=== PATIENT | male | born 1965 | race Caucasian/White ===

== ENCOUNTER → 2016-07-30 | Outpatient (CLI) | payer OTHER ==
[2016-07-30 09:01] LABS: Hemoglobin A1C 6.2 % (4.2-6.1)
== END | disposition home or self-care (01) ==
LOC: LABWHC1 08:04
PROVIDERS: ATTEND Internal Medicine Endocrinology, Diabetes & Metabolism
DX: E11.65 Type 2 diabetes mellitus with hyperglycemia (principal)
CPT/HCPCS: 36415; 82043; 82947; 83036; 84681

== ENCOUNTER → 2016-08-10 | Outpatient (CLI) | payer OTHER ==
--- NOTE | 2016-08-10 09:55 | MR ---
EXAMINATION TYPE: MR lumbar spine wo con DATE OF EXAM: 08/10/2016 9:47 AM COMPARISON: NONE HISTORY: Back pain TECHNIQUE: T1 and T2 axial and sagittal images of the lumbar spine are submitted. FINDINGS: There is no abnormal signal seen within the visualized spinal cord or paraspinal soft tissu es. At L1-2 there is mild disc desiccation and degenerative disc disease. No canal stenosis or foraminal encroachment. At L2-3 there is mild discogenic marrow changes and degenerative disc disease. No disc herniation or canal stenosis. Very mild right lateral disc bulging with no significant foraminal encroachment or ne rve root impingement. At L3-4 there is mild degenerative disc disease with circumferential disc bulging greater laterally w ith moderate bilateral foraminal encroachment. Hypertrophic change and ligamentum flavum and facet yasir ints results in mild to moderate canal stenosis. Vertebral body hemangioma L4. At L4-5 there is diffuse circumferential disc bulging facet arthropathy and hypertrophy ligamentum fl avum. There is moderate bilateral foraminal encroachment greater on the left more focal left lateral disc protrusion. Moderate canal stenosis. At L5-S1 there is degenerative disc disease with annular tear and small focal central disc herniation with mild effacement of thecal sac. Mild hypertrophic change of the facet joints and mild bilateral foraminal encroachment. IMPRESSION: 1. Disc bulging with hypertrophic changes of the facets and ligamentum flavum resulting in canal sten osis L3-4 and L4-5 with bilateral foraminal encroachment as discussed above. 2. Annular tear and focal central disc small herniation L5-S1 with mild effacement of thecal sac. 3. Multilevel mild to moderate degenerative disc disease.
== END | disposition home or self-care (01) ==
LOC: RADMRIMAIN 09:11
PROVIDERS: ATTEND Psychiatry & Neurology Neurology
DX: M51.26 Other intervertebral disc displacement, lumbar region (principal); M51.37 Other intervertebral disc degeneration, lumbosacral region; M51.36 Other intervertebral disc degeneration, lumbar region
CPT/HCPCS: 72148

== ENCOUNTER → 2016-09-19 | Outpatient (CLI) | payer OTHER ==
[2016-09-19 15:02] LABS: Blood Urea Nitrogen 16 mg/dL (9-20); Non-African American GFR(MDRD) >60 (>60 ml/min/1.73 sqM)
--- NOTE | 2016-09-19 16:38 | CT ---
EXAMINATION TYPE: CT ChestAbdPelvis w con DATE OF EXAM: 09/19/2016 4:16 PM COMPARISON: CT abdomen and pelvis 04/03/2016 HISTORY: 51-year-old male complains of epigastric pain and history of lymphadenopathy. TECHNIQUE: Contiguous axial scanning of the chest, abdomen, and pelvis performed with IV Contrast, pa tient injected with 100 mL of Omnipaque 300. Delayed images through the kidneys were obtained. Grewal l/sagittal reconstructions performed. CT DLP: 1996 mGycm Automated exposure control for dose reduction was used. FINDINGS: CHEST: The heart is normal size without pericardial effusion. Coronary vessel calcifications are present and are remarkable for coronary artery disease. Aorta is normal caliber with conventional arch vessel branching anatomy. Small 8 mm hypodense nodule within the left thyroid lobe. Incidental mild bilateral gynecomastia. No thoracic lymphadenopathy by CT size criteria. Evaluation of the lungs shows no consolidation or pleural effusion. ABDOMEN: No focal liver lesion. Early imaging for assessment of the portal vein. No biliary ductal dilatation. Gallbladder, adrenal glands, kidneys, and pancreas appear within normal limits. Spleen surgically absent. No dilated small bowel, free fluid, or free air. Normal appendix. Oral contrast has progressed to the distal third transverse colon. There is mild sto ol burden without pericolonic inflammatory change. The fold nodularity seen along the ascending colon has slightly decreased in the interval. Incidental independent takeoff of the common hepatic artery directly adjacent to the celiac axis. Scattered nonenlarged and mildly enlarged lymph nodes in the abdomen are redemonstrated measuring up to 1.5 cm in the sara hepatis and 8 mm in the right lower quadrant mesentery. There has been no prog ressive jes enlargement. PELVIS: Bladder is urine distended. No abnormal fluid collection in the pelvis. Borderline sized lymph nodes along the iliac chains measuring up to 6 to 7 mm are also unchanged. BONES: No osseous destructive process. IMPRESSION: 1. SCATTERED NONENLARGED AND MILDLY ENLARGED UPPER ABDOMINAL AND MESENTERIC LYMPH NODES MEASURING UP TO 1.5 CM ARE UNCHANGED FROM 04/03/2016 SUGGESTING A BENIGN POSTINFLAMMATORY ETIOLOGY. 2. FOLD NODULARITY ALONG THE ASCENDING COLON IS LESS PRONOUNCED COMPARED TO PRIOR EXAM MAKING THIS OF QUESTIONABLE CLINICAL SIGNIFICANCE. CORRELATE WITH ROUTINE SCREENING COLONOSCOPY.
== END | disposition home or self-care (01) ==
LOC: RADCTMAIN 14:17
PROVIDERS: ATTEND Internal Medicine Hematology & Oncology
DX: R59.1 Generalized enlarged lymph nodes (principal); K63.89 Other specified diseases of intestine
CPT/HCPCS: 82565; 84520; 71260; 74177; 36415; Q9967

== ENCOUNTER → 2016-10-31 | Outpatient (CLI) | payer OTHER ==
[2016-10-31 08:22] LABS: Basophils # (A) 0.2 k/uL (0-0.2); Basophils % (A) 1 %; CH 32.1; CHCM 35.7; Eosinophils # (A) 0.4 k/uL (0-0.7); Eosinophils % (A) 3 %; HDW 3.21; HGB 15.9 gm/dL (13.0-17.5); Luc # (Auto) 0.24; Luc % (Auto) 2; Lymphocytes # (A) 4.5 k/uL (1.0-4.8); Lymphocytes % (A) 35 %; MCH 31.3 pg (25.0-35.0); MCHC 34.6 g/dL (31.0-37.0); MCV 90.4 fL (80.0-100.0); Monocytes # (A) 0.8 k/uL (0-1.0); Monocytes % (A) 6 %; Neutrophils # (A) 6.7 k/uL (1.3-7.7); Neutrophils % (A) 52 %; RBC 5.09 m/uL (4.30-5.90); WBC 12.8 k/uL (3.8-10.6); WBC (Perox) 12.76
[2016-10-31 09:26] LABS: Hemoglobin A1C 5.8 % (4.2-6.1)
[2016-10-31 09:40] LABS: Prolactin 11.8 ng/mL (3.7-17.9)
== END | disposition home or self-care (01) ==
LOC: LABWHC1 07:59
PROVIDERS: ATTEND Internal Medicine Endocrinology, Diabetes & Metabolism
DX: E29.1 Testicular hypofunction (principal); E11.9 Type 2 diabetes mellitus without complications
CPT/HCPCS: 36415; 80061; 83002; 83036; 84146; 84153; 84402; 84403; 84439; 84443; 85025

== ENCOUNTER → 2017-06-30 | Outpatient (CLI) | payer OTHER ==
--- NOTE | 2017-06-30 09:28 | MR ---
EXAMINATION TYPE: MR tib fib LT wo con DATE OF EXAM: 06/30/2017 COMPARISON: NONE HISTORY: left leg pain TECHNIQUE: Multiplanar, multisequence images of the left tibia and fibula were acquired without intra venous contrast. FINDINGS: There are bilateral intramedullary T2 hyperintense and T1 hypointense metadiaphyseal proximal tibial lesions appearing to have a chondroid matrix given their T2 heterogenous hyperintensity. The right le shreya is incompletely evaluated but measures 6.3 x 2.7 cm in craniocaudal by transverse dimension. Thi s is seen only on the coronal planes. The left lesion measures 2.1 x 6.6 x 1.6 cm in transverse by cr aniocaudal by anterior posterior dimension. There is a well-defined sclerotic border on T1-weighted i mages of both of these lesions that is serpiginous. There is no cortical thickening or endosteal scal loping noted. Very minimal questionable surrounding bone marrow edema is present. Additionally within the left fibular head there is bone marrow edema and a curvilinear T1 hypointense signal abnormality on sagittal image 10 of T1 nonfat sat series 401. There appears to be mild medial compartment joint space narrowing and chondromalacia of both knees. E valuation of the menisci and ligaments are suboptimal given the [id number]. The visualized muscula ture maintains normal signal and muscle volume. IMPRESSION: 1. Similar appearing bilateral intramedullary metadiaphyseal proximal tibial lesions appearing to be composed of a chondroid matrix. Given their location and morphology primary considerations are for en chondroma, bone infarct, myeloma, metastasis or less likely low-grade neoplasm. Correlation with plai n film radiographs of the tibias is recommended and enhanced MR could be performed for further evalua tion. 2. Additional curvilinear T1 hypointensity with surrounding bone marrow edema of the proximal fibula suggest fracture. This could be also be a pathologic fracture and relation with radiographs is again recommended. Correlation with recent trauma is also recommended.
== END | disposition home or self-care (01) ==
LOC: RADMRIMAIN 08:11
PROVIDERS: ATTEND Family Medicine
DX: M89.8X6 Other specified disorders of bone, lower leg (principal); R60.0 Localized edema; M25.562 Pain in left knee

== ENCOUNTER → 2017-08-04 | Outpatient (CLI) | payer OTHER ==
--- NOTE | 2017-08-04 11:46 | US ---
EXAMINATION TYPE: US thyroid st tissue head/neck DATE OF EXAM: 08/04/2017 COMPARISON: Prior thyroid ultrasound December 22, 2015. CT chest abdomen and pelvis September 19, 2016 CLINICAL HISTORY: E04.1 THYROID NODULE. GLAND SIZE: Right Lobe: 5.1 x 2.2 x 1.3 cm Overall Parenchyma: homogenous Left Lobe: 5.1 x 1.8 x 1.4 cm Overall Parenchyma: homogeneous Isthmus Thickness: 0.5 cm NODULES RIGHT: # of nodules measured on right: 1 1. 0.4 X 0.3 x 0.2 cm hypoechoic cystic nodule at the lower medial pole with well-defined margins. This nodule is wider than tall and shows no intranodular vascularity. Prior size: no previous Lateral to upper right thyroid 2 oval hypoechoic nodules are seen 1) mid lateral = 1.0 x 0.6 x 0.7cm, 2) upper lateral = 0.6 x 0.3 x 0.3cm. Inferior and lateral to right thyroid 2 oval hypoechoic nodul es are imaged in parathyroid region: 1) = 0.5 x 0.4x 0.2cm, 2) 0.8 x 0.6 x 0.4cm. LEFT: # of nodules measured on left: 4 largest of multiple 1. 1.0 X 1.0 x 0.7 cm hypoechoic mixed nodule at the lower pole with well-defined margins; interru pted peripheral calcification. This nodule is wider than tall and shows no intranodular vascularity. Prior size: 0.9 x 0.8 x 0.9 cm 2. 1.2 X 1.3 x 0.7 cm hypoechoic mixed nodule at the mid pole with poorly defined margins. This nod ule is wider than tall and shows no intranodular vascularity. Prior size: no previous 3. 0.7 X 0.4 x 0.3 cm hypoechoic mixed nodule at the mid pole with well-defined margins. This nodul e is wider than tall and shows no intranodular vascularity. Prior size: no previous 4. 0.5 X 0.4 x 0.3 cm hypoechoic solid nodule at the upper pole with poorly defined margins. This n odule is wider than tall and shows no intranodular vascularity. Prior size: no previous Inferior to left thyroid 2 adjacent, oval, hypoechoic nodules are seen: 1) 1.7 x 1.1 x 0.8cm, 2) 0.7 x 0.4 x 0.4cm, and are located in parathyroid region. ISTHMUS: # of nodules measured in the isthmus: 0 IMPRESSION: There is stable 1.0 cm cystic nodule lower pole level left thyroid. There is 1.2 cm poorly defined hy poechoic mixed nodule posteriorly mid pole level left thyroid not clearly seen on prior studies. Smal l nodularity near periphery of both thyroids likely reflects subcentimeter nodules or adjacent benign lymph nodes.
== END | disposition home or self-care (01) ==
LOC: RADUSWWP 10:13
PROVIDERS: ATTEND Family Medicine
DX: E04.2 Nontoxic multinodular goiter (principal)
CPT/HCPCS: 76536

== ENCOUNTER → 2018-03-05 | Outpatient (CLI) | payer OTHER ==
--- NOTE | 2018-03-09 06:54 | MR ---
EXAMINATION TYPE: MR cervical spine wo/w con DATE OF EXAM: 03/05/2018 COMPARISON: NONE HISTORY: 52-year-old male Neck pain, headaches, BUE weakness, prior surgery Technique: Multiplanar, multisequence images of the cervical spine were obtained before and after adm inistration of 12.5 mL intravenous Gadavist gadolinium contrast. FINDINGS: No craniocervical junction abnormality, predental space widening, or prevertebral soft tissue swellin g. Prior C4-C5 ACDF. Multilevel degenerative disc disease is present with variable disc desiccation and bulging discs. Ligamentum flavum thickening and facet/uncovertebral joint arthropathy is also present scattered thro ughout. Degenerative changes are greatest above and below the fusion. At C2-C3, there is facet arthropathy and small central disc protrusion. Mild overall spinal canal wang nosis without significant neural foraminal stenosis. At C3-C4, there is a very large central disc extrusion with both superior and inferior migration of d isc material. This results in a severe spinal canal stenosis with AP canal diameter narrowed to 2 mm. There may be some subtle cord edema at this level. This is difficult to assess due to the degree of cord flattening. Facet and uncovertebral joint arthropathy is present with mild right neuroforaminal stenosis. At the fused C4-C5 level, there is mild canal narrowing probably in part congenital and in part poste rior osteophytic ridging. Some mild cord myelomalacia is present at this level, reference axial image 31 and sagittal image 7. Uncovertebral joint and facet arthropathy causing mild left neural foramina l stenosis. Below the fusion at C5-C6, there is broad-based disc osteophyte complex with uncovertebral joint and facet degenerative change. Changes result in a moderate to severe spinal canal stenosis with AP canal dimension narrowed to 4 mm. There is mild impression on both the dorsal and ventral cord but no T2-w eighted cord signal changes seen. There is moderate to severe right and moderate left neuroforaminal stenosis. At C6-C7, there is left paracentral disc protrusion narrowing the AP canal dimension to millimeters w ith moderate stenosis. Left greater than right uncovertebral joint and facet degenerative change cont ributes to [id number] left and mild right neuroforaminal stenosis. At C7-T1, mild discussed by complex and facet/uncovertebral joint degenerative change. Changes mildly narrow the right neuroforamen. No significant spinal canal stenosis. No suspicious enhancement seen within the spinal canal. IMPRESSION: 1. Prior C4-C5 ACDF. There is residual mild canal narrowing at this level in part due to congenital s theresa canal stenosis and mild persistent osteophytic ridging. Some chronic myelomalacia is also seen at this level. 2. However, there are accelerated degenerative changes both above and below the fusion. Notably, abov e the fusion at C3-C4, a very large disc extrusion shows both superior and inferior disc migration an d results in a severe spinal canal stenosis with cord compression. The AP canal diameter is narrowed to 2 mm. The degree of cord flattening makes it difficult to assess for any myelopathic cord signal c hanges. Mild right neuroforaminal stenosis at this level. 3. Below the fusion at C5-C6, broad-based disc osteophyte complex contributes to a moderate to severe spinal canal stenosis with AP canal dimension narrowed to 4 mm. Mild impression on both the dorsal a nd ventral cord without myelopathic cord signal change. Moderate to severe right and moderate left ne ural foraminal stenosis here. 4. Uncovertebral joint and facet arthropathy contributes to moderate to severe left and mild right ne uroforaminal stenosis at C6-C7. Message was left (regarding impression #2 above) for the medical biller coder at approximately 6:40am du e to off business hours at [phone] with instructions to convey to Sr[facility] GALLEGOS as soon as possible and for a return call to confirm message receipt. The office will also be contacted again when they open.
== END | disposition home or self-care (01) ==
LOC: RADMRIMAIN 14:55
PROVIDERS: ATTEND Physician Assistant
DX: M48.02 Spinal stenosis, cervical region (principal); M99.71 Connective tissue and disc stenosis of intervertebral foramina of cervical region; G95.89 Other specified diseases of spinal cord; G95.20 Unspecified cord compression; M46.92 Unspecified inflammatory spondylopathy, cervical region; Z98.1 Arthrodesis status
CPT/HCPCS: 72156; A9581

== ENCOUNTER → 2019-01-28 | Outpatient (CLI) | payer OTHER ==
--- NOTE | 2019-01-28 09:20 | US ---
EXAMINATION TYPE: US thyroid st tissue head/neck DATE OF EXAM: 01/28/2019 COMPARISON: Ultrasound dated 08/04/2017 CLINICAL HISTORY: E04.2 Multiple thyroid nodules. Multi nodular thyroid GLAND SIZE: Right Lobe: 4.9 X 1.7 X 1.6 cm Overall Parenchyma: heterogenous Left Lobe: 4.7 x 1.4 s 2.1 cm Overall Parenchyma: heterogeneous Isthmus Thickness: 0.5m NODULES RIGHT: # of nodules measured on right: 1. 0.3x 0.2 x0.5 cm solid nodule at the medial with poorly defined margins; . This nodule is wider than tall and shows no intranodular vascularity. Prior size: no prior 2. 0.5 x 0.5 x 0.6 cm nodule at the mid lateral poorly defined margins; . This nodule is round shows no intranodular vascularity. Prior size: 0.4 x 0.3 x 0.2 cm upper area lateral to thyroid 0.3x 0.2 x 0.4 cm seen prior LEFT: # of nodules measured on left: 4 1. 0.5 x 0.4 x0.6 cm mixed nodule at the lower pole with well-defined margins; . This nodule is and shows . Prior size: Not seen 2. 0.7 x 0.7 x 0.5 cm mixed nodule at the lower pole with well-defined margins; . This nodule is an d shows . Prior size: x x cm 3.1.1 x 0.8 x 0.8 cm lower pole with well-defined margins; . This nodule is wider than tall and show s no intranodular vascularity. Prior size: 1.1x1.3x0.7 cm 4. 0.5x0.4x0.4cmodule at the upper pole with well-defined margins; . This nodule is round shows no i ntranodular vascularity. Prior size: 0.5x0.4x0.3cm ISTHMUS: # of nodules measured in the isthmus: 0 Bilateral neck scanned, no evidence of lymphadenopathy. IMPRESSION: Similar size of multiple subcentimeter thyroid nodules and no interval growth of the larg est 1.1 cm left thyroid nodule. Solitary new 0.6 cm left thyroid nodule. Findings relate to multinodu lar goiter. Continued surveillance could be considered with ultrasound in 12 months.
== END | disposition home or self-care (01) ==
LOC: RADUSWWP 08:16
PROVIDERS: ATTEND Internal Medicine
DX: E04.2 Nontoxic multinodular goiter (principal); E04.1 Nontoxic single thyroid nodule
CPT/HCPCS: 76536

== ENCOUNTER → 2020-01-04 | Outpatient (CLI) | payer OTHER ==
--- NOTE | 2020-01-04 08:46 | US ---
EXAMINATION TYPE: US thyroid st tissue head/neck DATE OF EXAM: 01/04/2020 COMPARISON: January 28, 2019 CLINICAL HISTORY: E04.2 MULTIPLE THYROID NODULES. GLAND SIZE: Right Lobe: 5.2 x 1.5 x1.7 cm Overall Parenchyma: homogenous Left Lobe: 4.9 x 1.7 x 1.7 cm Overall Parenchyma: homogeneous Isthmus Thickness: 0.4 cm NODULES RIGHT: # of nodules measured on right: 1 1. 0.6 X 0.6 x 0.6 cm hypoechoic solid nodule at the lower pole with well-defined margins. This no dule is taller than wide and shows no intranodular vascularity. Prior size: 0.5 x 0.5 x 0.6 cm Subcentimeter nodules noted. LEFT: # of nodules measured on left: 1. 0.9 X 0.8 x 0.9 cm anechoic cystic nodule at the lower pole with well-defined margins. This nod ule is wider than tall and shows no intranodular vascularity. Prior size: 1.1 x 0.8 x 0.8 cm 2. 0.5 X 0.4 x 0.5 cm hypoechoic mixed nodule at the lower pole with well-defined margins. This nod ule is wider than tall and shows no intranodular vascularity. Prior size: 0.7 x 0.7 x 0.5cm 3. 0.5 X 0.5 x 0.4cm hypoechoic mixed nodule at the lower pole with well-defined margins. This nod ule is wider than tall and shows no intranodular vascularity. Prior size: 0.5 x 0.4 x0.6cm Subcentimeter nodules noted. ISTHMUS: # of nodules measured in the isthmus: 0 Inferior to thyroid is a possible parathyroid nodule measuring 1.1 x 0.8 x 0.9cm Bilateral neck scanned, no evidence of lymphadenopathy. IMPRESSION: Nonspecific thyroid nodularity. Possible parathyroid nodule as noted above.
== END | disposition home or self-care (01) ==
LOC: RADUSWWP 07:30
PROVIDERS: ATTEND Internal Medicine
DX: E04.2 Nontoxic multinodular goiter (principal)
CPT/HCPCS: 76536

== ENCOUNTER → 2021-03-13 | Outpatient (CLI) | payer OTHER ==
--- NOTE | 2021-03-13 12:14 | US ---
EXAMINATION TYPE: US thyroid st tissue head/neck DATE OF EXAM: 03/13/2021 COMPARISON: 01/04/20 US CLINICAL HISTORY: E04.2 Nontoxic multinodular goiter. GLAND SIZE: Right Lobe: 4.9x 1.8 x 2.1 cm Overall Parenchyma: heterogenous Left Lobe: 4.8 x 1.9 x 2.4 cm Overall Parenchyma: heterogeneous Isthmus Thickness: 0.6 cm NODULES RIGHT: # of nodules measured on right: 1 1. .7 X .6 x .7 cm, mid mid, solid or almost completely solid, hypoechoic nodule, which is wider th an tall, with irregular margins, without echogenic foci. Prior size: 0.6 x 0.6 x 0.6 cm LEFT: # of nodules measured on left: 2 1. 0.7 X 0.4 x 0.5 cm, mid mid, solid or almost completely solid, hypoechoic nodule, which is wider than tall, with irregular margins, without echogenic foci. Prior size: 0.5 x 0.4 x 0.5 cm 2. 1.1 X .09 x 1.0 cm, lower mid, cystic or almost completely cystic, anechoic nodule, which is wi to than tall, with smooth margins, without echogenic foci. Prior size: 0.9 x 0.8 x 0.9 cm Inferior to Lt thyroid hypoechoic area 1.4 x 0.8 x 1.3cm Bilateral neck scanned Bilateral lateral neck lymph nodes seen largest measured Heterogeneous normal size thyroid with stable small thyroid nodules when accounting for technical dif ference. Prominent but subcentimeter bilateral neck lymph nodes noted on current study. IMPRESSION: As above.
== END | disposition home or self-care (01) ==
LOC: RADUSWWP 10:55
PROVIDERS: ATTEND Internal Medicine
DX: E04.2 Nontoxic multinodular goiter (principal)
CPT/HCPCS: 76536

== ENCOUNTER 2021-06-08 11:01 | Observation (INO) | payer OTHER ==
[2021-06-08] MEDS ORDERED: SODIUM CHLORIDE 0.9% 1,000 ML IV ONE ×2 (11:13)
[2021-06-08 11:14] LABS: Glucose,Whole Blood 257 mg/dL (75-99)
[2021-06-08] MEDS ORDERED: THIAMINE 100 MG/ML 2 ML VIAL IM STA (11:16)
[2021-06-08 11:23] VITALS: TEMP 97.6
--- NOTE | 2021-06-08 11:25 | ED ---
General Adult HPI - General Chief complaint: Altered Mental Status Stated complaint: unresponsive Time Seen by Provider: 06/08/21 11:12 Source: family, RN notes reviewed Mode of arrival: ambulatory Limitations: altered mental status, physical limitation - History of Present Illness Initial comments: Patient is a 55-year-old male presenting to the emergency department with mother for decreased responsiveness. Patient woke up this morning and got into the car to go to his doctor appointment with his mother. Patient fell asleep. When they're patient was unable to be aroused. Mother came to emergency department. Patient arrives unresponsive. Patient does wake up partially shortly after this. Patient is able to answer some easy questions with one-word. Patient is able to follow some commands. Patient states he thinks he may have had a hist ory of seizure however mother does not feel this is true. There is concern for alcohol use. - Related Data Home Medications Medication Instructions Recorded Confirmed Atorvastatin [Lipitor] 20 mg PO DAILY 06/08/21 06/08/21 Cholecalciferol [Vitamin D3 (25 50 mcg PO DAILY 06/08/21 06/08/21 Mcg = 1000 Iu)] INSULIN ASPART (NovoLOG) [NovoLOG See Protocol SQ AC-TID 06/08/21 06/08/21 (formulary)] Insulin Glargine,Hum.rec.anlog 20 unit SQ DAILY 06/08/21 06/08/21 [Lantus Solostar Pen] Lisinopril [Zestril] 10 mg PO DAILY 06/08/21 06/08/21 Naproxen 500 mg PO BID PRN 06/08/21 06/08/21 Venlafaxine HCl ER [Effexor Xr] 75 mg PO DAILY 06/08/21 06/08/21 Allergies Allergy/AdvReac Type Severity Reaction Status Date / Time cat dander Allergy Per PCP Verified 06/08/21 11:44 cat pelt standardized Allergy Per PCP Verified 06/08/21 11:44 allergenic ex metformin Allergy Per PCP Verified 06/08/21 11:44 Review of Systems ROS Statement: Those systems with pertinent positive or pertinent negative responses have been documented in the HPI. ROS Other: All systems not noted in ROS Statement are negative. Limitations: ROS unobtainable due to patients medical condition Past Medical History History of Any Multi-Drug Resistant Organisms: Unobtainable Past Psychological History: Unable to Obtain Smoking Status: Unknown if ever smoked Past Alcohol Use History: Unable to Obtain Past Drug Use History: Unable to Obtain General Exam Limitations: altered mental status, physical limitation General appearance: alert Head exam: Present: normocephalic Eye exam: Present: normal appearance, PERRL, EOMI ENT exam: Present: normal oropharynx Neck exam: Present: normal inspection. Absent: tenderness Respiratory exam: Present: normal lung sounds bilaterally Cardiovascular Exam: Present: regular rate, normal rhythm GI/Abdominal exam: Present: soft. Absent: tenderness Extremities exam: Present: normal inspection, full ROM. Absent: tenderness Neurological exam: Present: alert, altered, CN II-XII intact. Absent: motor sensory deficit Expanded Neurological exam: Present: protecting the airway Patient oriented to: Present: person. Absent: place, time Cranial nerves: EOM's Intact: Normal Motor strength exam: RUE: 4, LUE: 4, RLE: 4, LLE: 4 Eye Response: (4) open spontaneously Motor Response: (6) obeys commands Verbal Response: (3) inappropriate words Psychiatric exam: Present: flat affect Skin exam: Present: normal color Course Vital Signs 06/08/21 06/08/21 06/08/21 11:16 11:20 11:35 Temperature 97.6 F Pulse Rate 75 70 79 Respiratory 20 20 21 Rate Blood Pressure 94/76 67/44 74/52 O2 Sat by Pulse 95 99 100 Oximetry 06/08/21 11:50 Temperature Pulse Rate 78 Respiratory 20 Rate Blood Pressure 79/46 O2 Sat by Pulse 99 Oximetry EKG Findings - EKG Comments: EKG Findings:: Normal sinus rhythm with rate of 79. TX 170. QRS 92. QT 410. QTc 470. Normal axis. Normal QRS. No acute ST change. Medical Decision Making - Medical Decision Making Patient reevaluated and further improved. Patient is alert and oriented 3. Blood pressure has increased up to 79 systolic. Patient and family updated on results. Dr. Jerez has paged for admission, covering for Dr. Casanova. Case was discussed with Dr. Jerez, who will admit. - Lab Data Result diagrams: 06/08/21 11:15 06/08/21 11:15 Lab Results 06/08/21 06/08/21 06/08/21 Range/Units 11:05 11:15 11:15 WBC 13.0 H (3.8-10.6) k/uL RBC 4.97 (4.30-5.90) m/uL Hgb 15.7 (13.0-17.5) gm/dL Hct 46.7 (39.0-53.0) % MCV 93.9 (80.0-100.0) fL MCH 31.6 (25.0-35.0) pg MCHC 33.7 (31.0-37.0) g/dL RDW 13.8 (11.5-15.5) % Plt Count 497 H (150-450) k/uL MPV 8.2 Neutrophils % 65 % Lymphocytes % 26 % Monocytes % 5 % Eosinophils % 1 % Basophils % 1 % Neutrophils # 8.5 H (1.3-7.7) k/uL Lymphocytes # 3.4 (1.0-4.8) k/uL Monocytes # 0.7 (0-1.0) k/uL Eosinophils # 0.1 (0-0.7) k/uL Basophils # 0.1 (0-0.2) k/uL PT 10.7 (9.0-12.0) sec INR 1.0 (<1.2) APTT 22.6 (22.0-30.0) sec Sodium (137-145) mmol/L Potassium (3.5-5.1) mmol/L Chloride (98-107) mmol/L Carbon Dioxide (22-30) mmol/L Anion Gap mmol/L BUN (9-20) mg/dL Creatinine (0.66-1.25) mg/dL Est GFR (CKD-EPI)AfAm (>60 ml/min/1.73 sqM) Est GFR (CKD-EPI)NonAf (>60 ml/min/1.73 sqM) Glucose (74-99) mg/dL POC Glucose (mg/dL) 257 H (75-99) mg/dL POC Glu Survey Supervisor ID Vandana Trammell Calcium (8.4-10.2) mg/dL Magnesium (1.6-2.3) mg/dL Total Bilirubin (0.2-1.3) mg/dL AST (17-59) U/L ALT (4-49) U/L Alkaline Phosphatase (38-126) U/L Ammonia (<30) umol/L Troponin I (0.000-0.034) ng/mL Total Protein (6.3-8.2) g/dL Albumin (3.5-5.0) g/dL TSH (0.465-4.680) mIU/L Free T4 (0.78-2.19) ng/dL Free T3 pg/mL (2.8-5.3) pg/ml Serum Alcohol mg/dL 06/08/21 06/08/21 06/08/21 Range/Units 11:15 11:15 11:15 WBC (3.8-10.6) k/uL RBC (4.30-5.90) m/uL Hgb (13.0-17.5) gm/dL Hct (39.0-53.0) % MCV (80.0-100.0) fL MCH (25.0-35.0) pg MCHC (31.0-37.0) g/dL RDW (11.5-15.5) % Plt Count (150-450) k/uL MPV Neutrophils % % Lymphocytes % % Monocytes % % Eosinophils % % Basophils % % Neutrophils # (1.3-7.7) k/uL Lymphocytes # (1.0-4.8) k/uL Monocytes # (0-1.0) k/uL Eosinophils # (0-0.7) k/uL Basophils # (0-0.2) k/uL PT (9.0-12.0) sec INR (<1.2) APTT (22.0-30.0) sec Sodium 141 (137-145) mmol/L Potassium 4.3 (3.5-5.1) mmol/L Chloride 106 (98-107) mmol/L Carbon Dioxide 16 L (22-30) mmol/L Anion Gap 19 mmol/L BUN 12 (9-20) mg/dL Creatinine 1.59 H (0.66-1.25) mg/dL Est GFR (CKD-EPI)AfAm 56 (>60 ml/min/1.73 sqM) Est GFR (CKD-EPI)NonAf 49 (>60 ml/min/1.73 sqM) Glucose 264 H (74-99) mg/dL POC Glucose (mg/dL) (75-99) mg/dL POC Glu Survey Supervisor ID Calcium 9.5 (8.4-10.2) mg/dL Magnesium 1.7 (1.6-2.3) mg/dL Total Bilirubin 0.5 (0.2-1.3) mg/dL AST 48 (17-59) U/L ALT 50 H (4-49) U/L Alkaline Phosphatase 109 (38-126) U/L Ammonia 9 (<30) umol/L Troponin I 0.019 (0.000-0.034) ng/mL Total Protein 7.5 (6.3-8.2) g/dL Albumin 4.2 (3.5-5.0) g/dL TSH 2.580 (0.465-4.680) mIU/L Free T4 1.05 (0.78-2.19) ng/dL Free T3 pg/mL 3.8 (2.8-5.3) pg/ml Serum Alcohol 160 mg/dL - Radiology Data Radiology results: report reviewed (Computed tomography scan of the brain shows no acute intercranial abnormality.), image reviewed (Chest x-ray shows cardiomegaly) Disposition Clinical Impression: Altered mental status, Hypotensive episode, Alcoholic intoxication Disposition: ADMITTED IP TO THIS [facility] Condition: Serious Is patient prescribed a controlled substance at d/c from ED?: No Decision Time: 12:25
[2021-06-08 11:47] LABS: Albumin 4.2 g/dL (3.5-5.0); Calcium 9.5 mg/dL (8.4-10.2); Magnesium 1.7 mg/dL (1.6-2.3); Potassium 4.3 mmol/L (3.5-5.1); Total Bilirubin 0.5 mg/dL (0.2-1.3); Total Protein 7.5 g/dL (6.3-8.2)
--- NOTE | 2021-06-08 11:53 | CT ---
EXAMINATION TYPE: CT brain wo con DATE OF EXAM: 06/08/2021 COMPARISON: None HISTORY: 55 year-old male confusion, altered mental status, Unresponsive. TECHNIQUE: Examination was done in axial plane without intravenous contrast. Coronal and sagittal r econstructions performed. CT DLP: 1126.4 mGycm Automated exposure control for dose reduction was used. FINDINGS: There is no evidence of acute intracranial hemorrhage, acute ischemic changes, mass, mass-effect, or extra-axial fluid collection. There is no effacement of cerebral sulci or basal subarachnoid cister ns. There is no hydrocephalus. There is no midline shift. Arevalo-white matter distinction is preserv ed. Mild patchy white matter hypodensities in both cerebral hemispheres. Leftward nasal septal deviation. Trace mucosal thickening ethmoid air cells. A 7 mm polyp or mucosal retention cyst inferior right maxillary sinus. Mastoid air cells well pneumatized. Orbits and globes are intact. IMPRESSION: No acute intracranial abnormality seen. Mild patchy burden of chronic small vessels giving disease. Mild chronic ethmoid and maxillary sinus disease.
[2021-06-08 12:02] LABS: T4, Free (Free Thyroxine) 1.05 ng/dL (0.78-2.19)
[2021-06-08 12:03] LABS: Basophils # (A) 0.1 k/uL (0-0.2); Basophils % (A) 1 %; Eosinophils # (A) 0.1 k/uL (0-0.7); Eosinophils % (A) 1 %; HCT 46.7 % (39.0-53.0); HGB 15.7 gm/dL (13.0-17.5); Lymphocytes # (A) 3.4 k/uL (1.0-4.8); Lymphocytes % (A) 26 %; MCH 31.6 pg (25.0-35.0); MCHC 33.7 g/dL (31.0-37.0); MCV 93.9 fL (80.0-100.0); Mean Platelet Volume 8.2; Monocytes # (A) 0.7 k/uL (0-1.0); Monocytes % (A) 5 %; Neutrophils # (A) 8.5 k/uL (1.3-7.7); Neutrophils % (A) 65 %; Platelet Count 497 k/uL (150-450); RBC 4.97 m/uL (4.30-5.90); RDW 13.8 % (11.5-15.5)
--- NOTE | 2021-06-08 12:04 | XR ---
EXAMINATION TYPE: XR chest 2V DATE OF EXAM: 06/08/2021 COMPARISON: 12/07/2015 INDICATION: Acute mental status changes TECHNIQUE: Frontal and lateral views of the chest are obtained. FINDINGS: The heart size is enlarged. The pulmonary vasculature is normal. The lungs are clear. IMPRESSION: 1. Mild cardiomegaly.
[2021-06-08 12:13] LABS: Partial Thromboplastin Time 22.6 sec (22.0-30.0); Prothrombin Time 10.7 sec (9.0-12.0)
[2021-06-08] MEDS ORDERED: SODIUM CHLORIDE 0.9% 1,000 ML IV STA (12:24)
[2021-06-08] MEDS ORDERED: NALOXONE 0.4 MG/ML 1 ML VIAL IV PRN (12:25)
[2021-06-08] MEDS ORDERED: SODIUM CHLORIDE 0.9% 1,000 ML IV SCH (12:30)
--- NOTE | 2021-06-08 14:34 | P.CNNES ---
History of Present Illness Consult date: 06/08/21 Requesting physician: Edward Weiner Reason for Consult: altered mental status History of Present Illness: This is 55-year-old gentleman with with medical history of diabetes, hypertension, chronic back pain, alcohol use who presented emergency department on the 06/08/2021 for an episode of unresponsiveness. He is accompanied with his mother was at bedside. Patient's mother stated that the she was driving him to his a neurology appointment for his chronic back pain (with Dr. Solorio) and while in the car around 9:00 in the morning today he was unresponsive. The mother stated that the he was having any jerking of his extremity noticed that he was drooling but the patient denied of any the urinary or bowel comments or tongue bite or tongue soreness. Patient episode lasted for probably around 2 hours. Patient does not have any history of seizures. She denies of history of strokes or TIAs in the past that he denies of any fever, cough, shortness of breath, any headaches, any neck pain. Patient serum alcohol level was 160 during the stay and upon asking him if he drinks alcohol he was hesitant and initially said no but upon tell him that is all call level was 160 he stated that he does drink alcohol upon asking how much he said not a lot. With more questioning he stated that he drank alcohol 7:00 in the morning today and he drinks 3-4 glasses of beer. He said that he drinks a fifth once a week and he's been doing it for years. Currently patient feels back to baseline. He denies of any focal deficits, numbness, tingling, visual disturbance. He denies of illicit drug use or tobacco use. Patient is on home medication of Lipitor 20 mg daily, Effexor, lisinopril 10 mg, Lantus, vitamin D3. Note she said that he has chronic back pain and has been seen Dr. Solorio for more than 3-4 years and he gets back injection. Initial vitals: Blood pressure of 94/76, heart rate of 75, temperature of 97.6 Fahrenheit oral, respiratory of 20, and pulse ox of 95% on 2 L of nasal cannula. Patient blood pressure was as low as 67/44. Per the patient's nurse the patient the received IV fluids as as a result of his hypertension. Initial white blood cell is 13.0 and the platelets of 497,000 and is slightly neutrophilic otherwise CBC with differential is unremarkable Sodium is 141, creatinine is 1.59, POC glucose is 257, AST is 48, ALTs 50, ammonia is 9, TSH is 2.580 and the free T4 is 1.050. Serum alcohol is 160 which is considered in the depressive state CT head: Was reported as no acute intracranial abnormality seen. Mild patchy burden of chronic small vessel disease. Mild chronic ethmoid and maxillary sinus disease Review of Systems Review of system: The 12 point system was reviewed and apparent positive and negative per HPI. Past Medical History History of Any Multi-Drug Resistant Organisms: Unobtainable Past Psychological History: Unable to Obtain Smoking Status: Unknown if ever smoked Past Alcohol Use History: Unable to Obtain Past Drug Use History: Unable to Obtain Medications and Allergies Home Medications Medication Instructions Recorded Confirmed Type Atorvastatin [Lipitor] 20 mg PO DAILY 06/08/21 06/08/21 History Cholecalciferol [Vitamin D3 (25 50 mcg PO DAILY 06/08/21 06/08/21 History Mcg = 1000 Iu)] INSULIN ASPART (NovoLOG) [NovoLOG See Protocol SQ AC-TID 06/08/21 06/08/21 History (formulary)] Insulin Glargine,Hum.rec.anlog 20 unit SQ DAILY 06/08/21 06/08/21 History [Lantus Solostar Pen] Lisinopril [Zestril] 10 mg PO DAILY 06/08/21 06/08/21 History Naproxen 500 mg PO BID PRN 06/08/21 06/08/21 History Venlafaxine HCl ER [Effexor Xr] 75 mg PO DAILY 06/08/21 06/08/21 History Allergies Allergy/AdvReac Type Severity Reaction Status Date / Time cat dander Allergy Per PCP Verified 06/08/21 11:44 cat pelt standardized Allergy Per PCP Verified 06/08/21 11:44 allergenic ex metformin Allergy Per PCP Verified 06/08/21 11:44 Physical Examination - Vital Signs Vital Signs: Vital Signs Temp Pulse Resp BP Pulse Ox 06/08/21 11:50 78 20 79/46 99 06/08/21 11:35 79 21 74/52 100 06/08/21 11:20 70 20 67/44 99 06/08/21 11:16 97.6 F 75 20 94/76 95 Intake and Output 06/07/21 06/08/21 06/08/21 22:59 06:59 14:59 Other: Weight 113.398 kg GENERAL: The patient is lying in bed and is not in acute distress. CHEST: The heart rate is regular rate rhythm. No murmurs to auscultation. No carotid bruit bilaterally. LUNG: Clear to auscultation bilaterally no wheezing noted throughout. Not labored breathing. ABDOMEN/GI: Bowel sounds present in all 4 quadrants. No tenderness to palpation throughout. INTEGUMENTARY: Has erythematous skin lesion that is non-raised over shins (he stated he had it for past 20 years and is pending to see a termite control technician for it. He denies of drug use). NEUROLOGICAL: Higher mental function: The patient is awake, alert, oriented to self, place and time. Patient is following commands. No aphasia and no neglect. Cranial nerves: The pupils are round, equal and reactive to light and accommodation. Visual starr are full to confrontation throughout. Extraocular movement is intact no nystagmus is noted. Facial sensation is normal to touch throughout. The facial strength is normal throughout. Hearing is normal bilaterally to hand rub. Tongue is midline and moved [id number] without any difficulty. No dysarthria is noted. Shoulder shrug is normal bilaterally. Motor: The strength is 5 over 5 throughout. Normal tone and bulk. Cerebellum: Normal finger to nose heel to linton bilaterally. Sensation: Sensation is normal to touch throughout. Reflexes (right/left): 2+ throughout. Plantars are downgoing bilaterally. Results - Laboratory Findings CBC and BMP: 06/08/21 11:15 06/08/21 11:15 Abnormal Lab Findings: Abnormal Labs 06/08/21 06/08/21 06/08/21 11:05 11:15 11:15 WBC 13.0 H Plt Count 497 H Neutrophils # 8.5 H Carbon Dioxide 16 L Creatinine 1.59 H Glucose 264 H POC Glucose (mg/dL) 257 H ALT 50 H Assessment and Plan Assessment: Altered mental status likely due to toxic encephalopathy (alcohol level of 160), and component of metabolic encephalopathy---mentation resolved Hypotensive episode likely due to above Acute kidney injury Alcohol use and on this presentation Alcohol intoxication (Alcohol level 160) Chronic back pain Plan: Ordered routine EEG. I will not start the patient on antiepileptic drugs unless there is epileptiform discharges or seizure on the EEG. Placed on thiamine 100mg daily. Patient has an erythema over bilateral linton he stated that this is chronic and he hasn't for 20 years and he is waiting the to see a termite control technician. I'm not sure if the if there is any IV drug use related to this. Patient was counseled on alcohol cessation. Will defer the rest of medical management to the primary team. Upon discharge, the patient to follow-up with his neurologist (Dr. Solorio) within 1-2 weeks. The plan is discussed with the patient, his mother (who is at bedside) and ED team. Thank you for the consult. Patient stated he wants to go home and I notified the ED physician. Per ED attending if he wants to go home he needs to sign AMA. Lion Deluna M.D. Neuro-Hospitalist Time with Patient: Greater than 30
[2021-06-08 14:47] VITALS: BP 124/78; PULSE 88; RESP 20
--- NOTE | 2021-06-08 15:22 | EEG ---
ELECTROENCEPHALOGRAM REPORT DATE OF SERVICE: 06/08/2021. CLINICAL HISTORY: This is a 55-year-old gentleman who presented to the emergency department because of episode of unresponsiveness. The video EEG is obtained to evaluate for seizure and epileptiform activity. RELEVANT MEDICATION: The patient is not on any antiepileptic drugs. EEG TYPE: A routine 21-channel EEG is performed with video using the 10/20 electrode placement system. DESCRIPTION: Awake state is only obtained. During awake state there is moderate voltage of 9-10 hertz activity that is well modulated, well sustained. There is no physiological sleep architecture seen. There is no focal slowing seen. Interictal and ictal is none. ACTIVATION PROCEDURE: Photic stimulation did not evoke a posterior driving response. There is no abnormality during the photic stimulation. Hyperventilation is not performed. CLINICAL INTERPRETATION: This is a normal routine EEG. There is no focal slowing, epileptiform discharge or seizure on the EEG. Clinical correlation is recommended. CHANDAN / FELIBERTO: [id number] / [id number]
[2021-06-09] MEDS ORDERED: THIAMINE 100 MG TAB PO SCH (09:00)
[2021-06-09] MEDS ORDERED: PANTOPRAZOLE 40 MG/10 ML VIAL IV SCH (09:00)
== END 2021-06-08 14:30 | disposition left against medical advice (07) ==
LOC: EC 11:01 → INTOOBSV 12:25 → 3SCARD 12:25 → UNDODISIN 14:30
PROVIDERS: ADMIT Internal Medicine; ATTEND Internal Medicine
DX: R41.82 Altered mental status, unspecified (principal); I95.9 Hypotension, unspecified; N17.9 Acute kidney failure, unspecified; F10.129 Alcohol abuse with intoxication, unspecified; G89.29 Other chronic pain; M54.9 Dorsalgia, unspecified; E11.9 Type 2 diabetes mellitus without complications; I10 Essential (primary) hypertension; J32.0 Chronic maxillary sinusitis; Z79.899 Other long term (current) drug therapy; Z79.4 Long term (current) use of insulin; Z88.8 Allergy status to other drugs, medicaments and biological substances; J30.81 Allergic rhinitis due to animal (cat) (dog) hair and dander; Z16.24 Resistance to multiple antibiotics; Y90.6 Blood alcohol level of 120-199 mg/100 ml; Z20.822 Contact with and (suspected) exposure to COVID-19; Z71.41 Alcohol abuse counseling and surveillance of alcoholic; Z53.29 Procedure and treatment not carried out because of patient's decision for other reasons
CPT/HCPCS: 96360; 96361; 96372; 99285; 36415; 95816; 93005; 84439; 84481; 80053; 82140; 83735; 84443; 84484; 85025; 85610; 85730; 87635; 71046; 70450; G0378; G0480; J3411; 80320

== ENCOUNTER 2022-09-13 10:28 | Emergency (ER) | payer OTHER ==
[2022-09-13] MEDS ORDERED: SODIUM CHLORIDE 0.9% 500 ML 500 ML IV ONE (10:46)
[2022-09-13] MEDS ORDERED: SODIUM CHLORIDE 0.9% 1,000 ML IV ONE ×2 (10:46→12:31)
--- NOTE | 2022-09-13 11:21 | ED ---
General Adult HPI - General Chief complaint: Alcohol Stated complaint: ETOH Time Seen by Provider: 09/13/22 10:28 Source: patient, RN notes reviewed, old records reviewed Mode of arrival: EMS Limitations: altered mental status - History of Present Illness Initial comments: This is a 57-year-old male presents emergency Department intoxicated. According to EMS family stated that this morning he wasn't really responding to them so they got nervous so they called EMS. When EMS arrived he was alert but he wasn't verbal with them until they were in route and then he started talking more. When I spoke with the patient he was alert and oriented. Patient states he started drinking last night about 6:00 and didn't quit until this morning about 7 AM. Patient denies any suicidal homicidal ideations. Patient denies any trauma. Patient denies any chest pain or difficulty breathing first breath per patient denies any abdominal pain patient's nausea vomiting. Patient denies any recent fever chills per patient has no complaints whatsoever and does not want to be here. - Related Data Home Medications Medication Instructions Recorded Confirmed Atorvastatin [Lipitor] 20 mg PO DAILY 06/08/21 09/13/22 Cholecalciferol [Vitamin D3 (25 50 mcg PO DAILY 06/08/21 09/13/22 Mcg = 1000 Iu)] INSULIN ASPART (NovoLOG) [NovoLOG See Protocol SQ ACHS PRN 06/08/21 09/13/22 (formulary)] Insulin Glargine,Hum.rec.anlog 25 unit SQ HS 06/08/21 09/13/22 [Lantus Solostar Pen] Naproxen 500 mg PO BID PRN 06/08/21 09/13/22 Venlafaxine HCl ER [Effexor Xr] 75 mg PO DAILY 06/08/21 09/13/22 lisinopriL [Zestril] 10 mg PO DAILY 06/08/21 09/13/22 Beet Root 1 cap PO DAILY 09/13/22 09/13/22 Gabapentin [Neurontin] 300 mg PO TID 09/13/22 09/13/22 Pioglitazone [Actos] 30 mg PO DAILY 09/13/22 09/13/22 tiZANidine [Zanaflex] 4 mg PO BID PRN 09/13/22 09/13/22 traMADol HCL 50 mg PO BID PRN 09/13/22 09/13/22 Allergies Allergy/AdvReac Type Severity Reaction Status Date / Time cat dander Allergy Per PCP Verified 09/13/22 11:16 cat pelt standardized Allergy Per PCP Verified 09/13/22 11:16 allergenic ex metformin Allergy Per PCP Verified 09/13/22 11:16 Review of Systems ROS Statement: Those systems with pertinent positive or pertinent negative responses have been documented in the HPI. ROS Other: All systems not noted in ROS Statement are negative. Past Medical History Additional Past Medical History / Comment(s): ETOH History of Any Multi-Drug Resistant Organisms: Unobtainable Past Surgical History: Orthopedic Surgery Additional Past Surgical History / Comment(s): splenectomy, spinal cord c2-t2 surgery. Past Psychological History: Unable to Obtain Smoking Status: Never smoker Past Alcohol Use History: Heavy Past Drug Use History: Unable to Obtain General Exam - General Exam Comments Initial Comments: GENERAL: Patient is well-developed and well-nourished. Patient is nontoxic and well- hydrated and is in no acute distress. Patient appears intoxicated ENT: Neck is soft and supple. No significant lymphadenopathy is noted. Oropharynx is clear. Moist mucous membranes. Neck has full range of motion without eliciting any pain. EYES: The sclera were anicteric and conjunctiva were pink and moist. Extraocular movements were intact and pupils were equal round and reactive to light. Eyelid s were unremarkable. PULMONARY: Unlabored respirations. Good breath sounds bilaterally. No audible rales rhonchi or wheezing was noted. CARDIOVASCULAR: There is a regular rate and rhythm without any murmurs gallops or rubs. ABDOMEN: Soft and nontender with normal bowel sounds. No palpable organomegaly was noted. There is no palpable pulsatile mass. SKIN: Skin is clear with no lesions or rashes and otherwise unremarkable. NEUROLOGIC: Patient is alert and oriented x3. Cranial nerves II through XII are grossly intact. Motor and sensory are also intact. Normal speech, volume and content. Symmetrical smile. MUSCULOSKELETAL: Normal extremities with adequate strength and full range of motion. No lower extremity swelling or edema. No calf tenderness. LYMPHATICS: No significant lymphadenopathy is noted PSYCHIATRIC: Denies suicidal or homicidal ideations Limitations: altered mental status Course Vital Signs 09/13/22 09/13/22 09/13/22 10:31 10:55 10:58 Temperature 99.0 F Pulse Rate 81 80 Respiratory 18 18 16 Rate Blood Pressure 75/39 95/54 O2 Sat by Pulse 87 L 90 L 89 L Oximetry 09/13/22 09/13/22 09/13/22 12:11 12:30 12:47 Temperature Pulse Rate 76 79 85 Respiratory 18 18 18 Rate Blood Pressure 77/38 63/22 100/63 O2 Sat by Pulse 94 L 94 L 95 Oximetry 09/13/22 13:06 Temperature Pulse Rate 70 Respiratory 18 Rate Blood Pressure 100/65 O2 Sat by Pulse 97 Oximetry Medical Decision Making - Medical Decision Making Patient's EKG was interpreted by myself shows sinus rhythm at 76 bpm SC interval 160 QRS 94 QT interval 381 QTC is 411. Patient's EKG shows T-wave inversions in leads 3 and aVF as well as lateral leads V5 and V6. Was pt. sent in by a medical professional or institution (, PA, MATERIALS HANDLER, urgent care, hospital, or [place] [facility] facility...) When possible be specific @ -No Did you speak to anyone other than the patient for history (EMS, parent, family, police, friend...)? What history was obtained from this source @ -EMS gave quite a bit of history. Did you review nursing and triage notes (agree or disagree)? Why? @ -I reviewed and agree with nursing and triage notes Were old charts reviewed (outside hosp., previous admission, EMS record, old EKG, old radiological studies, urgent care reports/EKG's, [place] [facility] facility records)? Report findings @ -No old charts were reviewed Differential Diagnosis (chest pain, altered mental status, abdominal pain women, abdominal pain men, vaginal bleeding, weakness, fever, dyspnea, syncope, headache, dizziness, GI bleed, back pain, seizure, CVA, palpatations, mental health, musculoskeletal)? @ -Differential Altered Mental Status: Hypoglycemia, DKA, hypercapnia, ETOH, overdose, CO poisoning, trauma, myxedema coma, HTN encephalopathy, infection, encephalitis, psychosis, intercranial hemorrhage, hepatic encephalopathy, meningitis, CVA, this is not meant to be an all-inclusive list EKG interpreted by me (3pts min.). @ -As above X-rays interpreted by me (1pt min.). @ -None done CT interpreted by me (1pt min.). @ -None done U/S interpreted by me (1pt. min.). @ -None done What testing was considered but not performed or refused? (CT, X-rays, U/S, lab s)? Why? @ -None What meds were considered but not given or refused? Why? @ -None Did you discuss the management of the patient with other professionals (professionals i.e. , PA, MATERIALS HANDLER, lab, RT, psych nurse, social worker health services, cattery operator, teacher, sanitation officer, nurse outreach case manager)? Give summary @ -No Was smoking cessation discussed for >3mins.? @ -No Was critical care preformed (if so, how long)? @ -No Were there social determinants of health that impacted care today? How? (Homelessness, low income, unemployed, alcoholism, drug addiction, transportation, low edu. Level, literacy, decrease access to med. care, prison, rehab)? @ -No Was there de-escalation of care discussed even if they declined (Discuss DNR or withdrawal of care, Hospice)? DNR status @ -No What co-morbidities impacted this encounter? (DM, HTN, Smoking, COPD, CAD, Cancer, CVA, ARF, Chemo, Hep., AIDS, mental health diagnosis, sleep apnea, morbid obesity)? @ -None Was patient admitted / discharged? Hospital course, mention meds given and route, prescriptions, significant lab abnormalities, going to OR and other pertinent info. @ -Patient was in the emergency department initially blood pressure was a little low but he received a couple liters of normal saline and his pressure came up to a normal range. Patient amputated around the ER and was steady and had no complaints. Mother was there mother states she was willing to take him home and let him sober up at home. Patient has been an alcoholic in the past and has been sober for the last year and he doesn't have any reason as to why he drank last night. Undiagnosed new problem with uncertain prognosis? @ -No Drug Therapy requiring intensive monitoring for toxicity (Heparin, Nitro, Insulin, Cardizem)? @ -No Were any procedures done? @ -No Diagnosis/symptom? @ -Alcohol intoxication Acute, or Chronic, or Acute on Chronic? @ -Acute Uncomplicated (without systemic symptoms) or Complicated (systemic symptoms)? @ -Complicated Side effects of treatment? @ -No Exacerbation, Progression, or Severe Exacerbation? @ -No Poses a threat to life or bodily function? How? (Chest pain, USA, NC, pneumonia, PE, COPD, DKA, ARF, appy, cholecystitis, CVA, Diverticulitis, Homicidal, Suicidal, threat to staff... and all critical care pts) @ -No - Lab Data Result diagrams: 09/13/22 10:54 09/13/22 10:54 Lab Results 09/13/22 09/13/22 Range/Units 10:54 10:54 WBC 8.7 (3.8-10.6) k/uL RBC 4.87 (4.30-5.90) m/uL Hgb 14.7 (13.0-17.5) gm/dL Hct 41.2 (39.0-53.0) % MCV 84.7 (80.0-100.0) fL MCH 30.2 (25.0-35.0) pg MCHC 35.7 (31.0-37.0) g/dL RDW 13.9 (11.5-15.5) % Plt Count 421 (150-450) k/uL MPV 7.9 Neutrophils % 41 % Lymphocytes % 50 % Monocytes % 5 % Eosinophils % 2 % Basophils % 1 % Neutrophils # 3.6 (1.3-7.7) k/uL Lymphocytes # 4.3 (1.0-4.8) k/uL Monocytes # 0.4 (0-1.0) k/uL Eosinophils # 0.2 (0-0.7) k/uL Basophils # 0.1 (0-0.2) k/uL Hyperchromasia Slight Sodium 135 L (137-145) mmol/L Potassium 4.7 (3.5-5.1) mmol/L Chloride 100 (98-107) mmol/L Carbon Dioxide 24 (22-30) mmol/L Anion Gap 11 mmol/L BUN 24 H (9-20) mg/dL Creatinine 1.59 H (0.66-1.25) mg/dL Est GFR (CKD-EPI)AfAm 56 (>60 ml/min/1.73 sqM) Est GFR (CKD-EPI)NonAf 48 (>60 ml/min/1.73 sqM) Glucose 161 H (74-99) mg/dL Calcium 8.3 L (8.4-10.2) mg/dL Magnesium 1.8 (1.6-2.3) mg/dL Total Bilirubin 0.4 (0.2-1.3) mg/dL AST 21 (17-59) U/L ALT 24 (4-49) U/L Alkaline Phosphatase 80 (38-126) U/L Total Protein 6.4 (6.3-8.2) g/dL Albumin 3.4 L (3.5-5.0) g/dL Serum Alcohol 238 H* mg/dL Disposition Clinical Impression: Alcoholic intoxication Disposition: HOME SELF-CARE Condition: Good Instructions (If sedation given, give patient instructions): Alcohol Intoxication (ED) Is patient prescribed a controlled substance at d/c from ED?: No Referrals: Aby Moura MD [Primary Care Provider] - 1-2 days Time of Disposition: 13:44
[2022-09-13 11:27] LABS: Albumin 3.4 g/dL (3.5-5.0); Calcium 8.3 mg/dL (8.4-10.2); Magnesium 1.8 mg/dL (1.6-2.3); Potassium 4.7 mmol/L (3.5-5.1); Total Bilirubin 0.4 mg/dL (0.2-1.3); Total Protein 6.4 g/dL (6.3-8.2)
[2022-09-13 11:54] LABS: Basophils # (A) 0.1 k/uL (0-0.2); Basophils % (A) 1 %; Eosinophils # (A) 0.2 k/uL (0-0.7); Eosinophils % (A) 2 %; HCT 41.2 % (39.0-53.0); HGB 14.7 gm/dL (13.0-17.5); Hyperchromasia Slight; Lymphocytes # (A) 4.3 k/uL (1.0-4.8); Lymphocytes % (A) 50 %; MCH 30.2 pg (25.0-35.0); MCHC 35.7 g/dL (31.0-37.0); MCV 84.7 fL (80.0-100.0); Mean Platelet Volume 7.9; Monocytes # (A) 0.4 k/uL (0-1.0); Monocytes % (A) 5 %; Neutrophils # (A) 3.6 k/uL (1.3-7.7); Neutrophils % (A) 41 %; Platelet Count 421 k/uL (150-450); RBC 4.87 m/uL (4.30-5.90); RDW 13.9 % (11.5-15.5); WBC 8.7 k/uL (3.8-10.6)
--- NOTE | 2022-09-13 12:28 | XR ---
EXAMINATION TYPE: XR chest 2V DATE OF EXAM: 09/13/2022 11:54 AM COMPARISON: Chest radiographs from 06/08/2021 TECHNIQUE: XR chest 2V Frontal and lateral views of the chest. CLINICAL INDICATION:Male, 57 years old with history of Difficulty breathing ; FINDINGS: Lungs/Pleura: There is no evidence of pleural effusion, focal consolidation, or pneumothorax. Elevat ion the right hemidiaphragm redemonstrated. Pulmonary vascularity: Unremarkable. Heart/mediastinum: Cardiomediastinal silhouette is unremarkable. Musculoskeletal: No acute osseous pathology. Cervical fusion hardware partially visualized. IMPRESSION: No acute cardiopulmonary disease/process.
[2022-09-13 14:08] VITALS: BP 106/70; PULSE 88; RESP 16; TEMP 97.8
== END 2022-09-13 14:08 | disposition home or self-care (01) ==
LOC: EC 10:28
DX: F10.129 Alcohol abuse with intoxication, unspecified (principal); Y90.7 Blood alcohol level of 200-239 mg/100 ml; Z91.048 Other nonmedicinal substance allergy status; Z88.8 Allergy status to other drugs, medicaments and biological substances
CPT/HCPCS: 36415; 93005; 80053; 83735; 85025; 71046; 99284; 96360; 96361; G0480; 80320

== ENCOUNTER → 2023-01-14 | Outpatient (CLI) | payer OTHER ==
--- NOTE | 2023-01-14 14:11 | US ---
EXAMINATION TYPE: US thyroid st tissue head/neck DATE OF EXAM: 01/14/2023 COMPARISON: Thyroid ultrasound 03/13/2021, 01/04/2020, 01/28/2019 CLINICAL INDICATION: Male, 57 years old with history of E04.2 NONTOXIC MULTINODULAR GOITER; thyroid n odules GLAND SIZE: Right Lobe: 5.2 x 1.9 x 2.0 cm Overall Parenchyma: heterogenous Left Lobe: 5.2 x 1.9 x 1.4 cm Overall Parenchyma: heterogenous Isthmus Thickness: 0.4 cm NODULES RIGHT: # of nodules measured on right: 1 1. 0.7 X 0.6 x 0.8 cm, mid, solid or almost completely solid, hypoechoic nodule, which is wider con n tall, with ill-defined margins, without echogenic foci. Prior size: 0.7 x 0.6 x 0.7 cm LEFT: # of nodules measured on left: 2 1. 1.1 X 0.8 x 1.0 cm, lower , cystic or almost completely cystic, anechoic nodule, which is wider than tall, with smooth margins, with echogenic foci. Prior size: 1.1 x 0.9 x 1.0 cm 2. 0.6 X 0.5 x 0.6 cm, mid, solid or almost completely solid, hypoechoic nodule, which is wider th an tall, with ill-defined margins, without echogenic foci. Prior size: 0.7 x 0.4 x 0.5 cm Stable hypoechoic 1.5 cm lesion inferior to the left thyroid lobe. Parathyroid nodule versus lymph no de. ISTHMUS: # of nodules measured in the isthmus: 0 IMPRESSION: 1. Stable bilateral thyroid nodules. No new or enlarging thyroid nodules. 2. Stable left inferior thyroid possible parathyroid nodule versus lymph node.
== END | disposition home or self-care (01) ==
LOC: RADUSWWP 13:34
PROVIDERS: ATTEND Internal Medicine
DX: E04.2 Nontoxic multinodular goiter (principal)
CPT/HCPCS: 76536

== ENCOUNTER → 2023-07-08 | Outpatient (CLI) | payer OTHER ==
[2023-07-08 13:35] VITALS: BP 142/89; PULSE 79; RESP 15; TEMP 98.6
--- NOTE | 2023-07-08 14:21 | P.PAINPG ---
PQRS Measure Charge Sheet Comment: HISTORY OF PRESENT ILLNESS: A 57 yr old male as a referral from [facility] presents today w severe and chronic LBP x 10 yrs secondary to L2 compression fracture, DDD, spondylosis and facet arthropathy without myelopathy for evaluation. Pt states pain level is provoked at 3/10 in intensity, constant, localized in the lumbar spine, predominantly axial, stabbing in character without shooting pain. Pain is provoked by standing/ sitting for periods > 20 min. Pain is alleviated by PT which he will start this week, medications (Tramadol #45, Zanaflex, Naproxen, Neurontin 300mg #90), manual massage, repositioning and rest. Oswestry axial pain score at 25. PMH: OA, HTN, NIDDM II PSH: C2-T2 Spinal Cord Surgery, Splenectomy SH: Never smoker, Heavy ETOH use, No illicit drug use. 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 FH: Non contributory All: See list Meds: See list REVIEW OF ORGAN SYSTEMS: CONSTITUTIONAL: No fevers or chills. No recent weight loss. NEUROLOGICAL: + numbness and tingling along the distal extremities. No seizure disorders or headaches. MUSCULOSKELETAL: + pain PSYCHIATRIC: Denies current depression or suicidal thoughts. Physical Examinations : Constitutional : Cooperative , not in acute distress . Neurologic : Cranial nerve II to XII intact. No focal neurological deficits. Psychiatric : alert & oriented x 3. Matching mood & appropriate affect. Judgment & insight intact. Musculoskeletal : Cervical Spine Motor strength in the deltoid and biceps: Normal right side. Normal Left side Motor strength biceps and the wrist extensors: Normal right side . Normal left side Motor strength in the triceps muscle: Normal right side. Normal left side Deep tendon reflexes: Normal at the biceps. Normal at Brachioradialis. Normal at triceps Vertebral body tenderness to deep palpation over Cervical facet loading test: positive bilaterally Spurling test: positive bilaterally Neck distraction test: positive bilaterally Alicia sign: positive bilaterally Lumbar spine Motor strength lower extremities ,thigh and legs 5/5 Right side , 5/5 Left side Deep tendon reflexes : Normal Knee Jerk. Normal Ankle Jerk Vertebral body tenderness over L4 Covarrubias Test positive Lumbar facet Loading Test: positive Right / positive Left Range of motion of the lumbar spine Flexion 30 degrees, extension 10 degrees Straight Leg Raise test: Left> Right positive at 30 degrees Slade test: positive right / positive left. Severe tenderness over the Sacroiliac joint on the Right / Left sides Gaenslen test: positive bilaterally Seated flexion test: positive bilaterally. Sacral spine : Severe tenderness over the Sacroiliac joint: right side / left side Range of motion: Flexion of the lumbar spine <60 degrees Range of motion: Extension of the lumbar spine <20 degrees Gaenslen's Test positive Slade test: positive right side / left side Thigh Thrust Test Sacral Thrust Test Imaging: Noncontrast of the lumbar spine from 12/10/2022 reviewed Assessment/ Plan : Lumbar DDD Recommendation of DEJA L4-L5 #1. May need a series fo injections for optimal pain relief. Risks, benefits of procedure discussed and patient verbalized understanding. Admits to anti- coagulant use or medical history of diabetes. Protocol for discontinuation/ continuation of medications harpal procedure discussed. Minimal anesthesia provided, if clinically indicated, consisting of Versed and Fentanyl. All questions answered. I have spent greater than 30 minutes on patient care today. Dr Rodrigues was available by phone for the evaluation of this patient. The time was used to review the medical records including relevant urine studies and Prescription history (MAPs), review of the available imaging, evaluation and examination of the patient, coordination of care with the medical staff and if applicable referring physicians, as well as creation of the medical record Home Medications: Ambulatory Orders Atorvastatin [Lipitor] 20 mg PO DAILY 06/08/21 Cholecalciferol [Vitamin D3 (25 Mcg = 1000 Iu)] 50 mcg PO DAILY 06/08/21 INSULIN ASPART (NovoLOG) [NovoLOG (formulary)] See Protocol SQ ACHS PRN 06/08/21 Insulin Glargine,Hum.rec.anlog [Lantus Solostar Pen] 25 unit SQ HS 06/08/21 Naproxen 500 mg PO BID PRN 06/08/21 Venlafaxine HCl ER [Effexor Xr] 75 mg PO DAILY 06/08/21 lisinopriL [Zestril] 10 mg PO DAILY 06/08/21 Beet Root 1 cap PO DAILY 09/13/22 Gabapentin [Neurontin] 300 mg PO TID 09/13/22 Pioglitazone [Actos] 30 mg PO DAILY 09/13/22 tiZANidine [Zanaflex] 4 mg PO BID PRN 09/13/22 traMADol HCL 50 mg PO BID PRN 09/13/22 Controlled Substance Measures - Controlled Substance Measures Is patient prescribed a controlled substance at discharge?: No
== END ==
LOC: PNWHC3 12:58
PROVIDERS: ATTEND Specialist
DX: M48.061 Spinal stenosis, lumbar region without neurogenic claudication (principal); M51.36 Other intervertebral disc degeneration, lumbar region; M47.816 Spondylosis without myelopathy or radiculopathy, lumbar region; M19.90 Unspecified osteoarthritis, unspecified site; I10 Essential (primary) hypertension; E11.9 Type 2 diabetes mellitus without complications; Z79.4 Long term (current) use of insulin; Z79.899 Other long term (current) drug therapy; Z91.09 Other allergy status, other than to drugs and biological substances; Z88.8 Allergy status to other drugs, medicaments and biological substances
CPT/HCPCS: 99211

== ENCOUNTER 2023-07-22 06:47 | Day surgery (SDC) | payer OTHER ==
[2023-07-17 16:04] VITALS: BMI 37.3
[~2023-07-22 06:47] MED LIST: LACTATED RINGERS 1,000 ML IV SCH
[2023-07-22 08:09] LABS: Glucose,Whole Blood 105 mg/dL (70-110)
[2023-07-22 08:32] VITALS: TEMP 97.8
[2023-07-22] MEDS ORDERED: methylPREDNISolone ACETATE 80 MG/ML 1 ML VIAL ONE (08:45)
[2023-07-22] MEDS ORDERED: IOPAMIDOL M200 10 ML VIAL ONE (08:45)
[2023-07-22] MEDS ORDERED: ROPIVACAINE 5MG/ML 20ML VIAL ONE (08:45)
[2023-07-22 09:09] LABS: Glucose,Whole Blood 101 mg/dL (70-110)
--- NOTE | 2023-07-22 09:10 | P.PCN ---
Description of Procedure: PREOPERATIVE DIAGNOSIS: 1- Lumbar Degenerative Disc Diseases 2-Lumbar spondylosis with Facet arthropathy without myelopathy. 3-lumbar spinal stenosis POSTOPERATIVE DIAGNOSIS: 1-lumbar degenerative disc disease. 2-lumbar spondylosis with facet arthropathy without myelopathy. 3-lumbar spinal stenosis. PROCEDURE Injection of radio contrast material into L4-5 interspace, interpretation of epidurogram, injection of steroid at L4- 5 epidural space under fluoroscopic guidance. ANESTHESIA: Lidocaine 1% subcutaneously. In OR continuous pulse ox, EKG, blood pressure and verbal communication was maintained with the patient. EBL: Minimal PROCEDURE INDICATION: Before the procedure were discussed with the patient detailed procedure, alternatives, complications including infection, bleeding, nerve damage, paralysis all of which could be permanent. Patient understands and all questions were answered. PROCEDURE DESCRIPTION : After getting consent, patient in OR in prone position. Back was prepped with chlorhexidine and draped in sterile fashion. After injecting 10 mL of 1% lidocaine subcutaneously, a 20-gauge Tuohy needle was introduced at L4 5 interspace with loss of resistance technique using a syringe filled with air. Negative CSF, negative blood, negative paresthesia. Needle position was confirmed with AP and lateral view of the fluoroscope. After repeat negative aspiration 2 mL of Omnipaque 200 water soluble contrast was injected. Contrast was noted in the epidural space. No contrast was noted into intrathecal or intravascular space. After repeat negative aspiration 6 mL solution was injected intermittently which consists of 5 mL of preservative-free normal saline mixed with 1 mL of 80 mg Depo-Medrol. Needle was withdrawn intact. Skin was cleansed and Band-Aids was applied. DISPOSITION / PLANS: The patient tolerated the procedure well. No complication. The patient was placed in a supine position and transferred to the recovery area in a stable condition for observation. There was no evidence of lower extremity motor or sensory deficit after the procedure. Patient was discharged from the recovery room after meeting discharge criteria. Home discharge instructions were given to the patient by the staff. The patient was reexamined prior to discharge. The patient will schedule a follow up in the clinic in 2-4 weeks.
[2023-07-22 09:15] VITALS: RESP 16
[2023-07-22 09:16] VITALS: PULSE 77
[2023-07-22 09:53] VITALS: BP 150/97
--- NOTE | 2023-07-22 15:42 | FL ---
EXAMINATION TYPE: FL guided pain mgmt statistic DATE OF EXAM: 07/22/2023 FLUOROSCOPY Fl time- 13.4 sec DAP- [id number] mGycm2 Imaging during lumbar steroid epidural injection. One image submitted
== END 2023-07-22 09:34 | disposition home or self-care (01) ==
LOC: ORPAIN 06:47
PROVIDERS: ATTEND Pain Medicine Interventional Pain Medicine
DX: M51.36 Other intervertebral disc degeneration, lumbar region (principal); M47.816 Spondylosis without myelopathy or radiculopathy, lumbar region; M48.061 Spinal stenosis, lumbar region without neurogenic claudication; E11.9 Type 2 diabetes mellitus without complications; Z79.84 Long term (current) use of oral hypoglycemic drugs
CPT/HCPCS: 62323; J1040; Q9966; J2795

== ENCOUNTER → 2023-08-14 | Outpatient (CLI) | payer OTHER ==
--- NOTE | 2023-08-14 12:52 | P.PAINPG ---
PQRS Measure Charge Sheet Comment: HISTORY OF PRESENT ILLNESS: A 57 yr old male presents today w severe and chronic LBP x 10 yrs secondary to L2 compression fracture, DDD, spondylosis and facet arthropathy without myelopathy for evaluation s/p DEJA L4-L5 #1. Pt states he experienced 60 % pain relief x 2-3 wks s/p procedure. Pt states pain level is provoked at 7/10 in intensity, constant, localized in the lumbar spine, predominantly axial, stabbing in character without shooting pain. Pain is provoked by standing/ sitting for periods > 20 min. Pain is alleviated by PT x 5 wks which he is currently in, medications, manual massage, repositioning and rest. Oswestry axial pain score at 24. Interventional procedures include DEJA L4-L5 x1 Medications include Tramadol #45, Zanaflex, Neurontin 300mg #90, Naproxen REVIEW OF ORGAN SYSTEMS: CONSTITUTIONAL: No fevers or chills. No recent weight loss. NEUROLOGICAL: + numbness and tingling along the distal extremities. No seizure disorders or headaches. MUSCULOSKELETAL: + pain PSYCHIATRIC: Denies current depression or suicidal thoughts. Physical Examinations : Constitutional : Cooperative , not in acute distress . Neurologic : Cranial nerve II to XII intact. No focal neurological deficits. Psychiatric : alert & oriented x 3. Matching mood & appropriate affect. Judgment & insight intact. Musculoskeletal : Cervical Spine Motor strength in the deltoid and biceps: Normal right side. Normal Left side Motor strength biceps and the wrist extensors: Normal right side . Normal left side Motor strength in the triceps muscle: Normal right side. Normal left side Deep tendon reflexes: Normal at the biceps. Normal at Brachioradialis. Normal at triceps Vertebral body tenderness to deep palpation over Cervical facet loading test: positive bilaterally Spurling test: positive bilaterally Neck distraction test: positive bilaterally Alicia sign: positive bilaterally Lumbar spine Motor strength lower extremities ,thigh and legs 5/5 Right side , 5/5 Left side Deep tendon reflexes : Normal Knee Jerk. Normal Ankle Jerk Vertebral body tenderness over L4 Covarrubias Test positive Lumbar facet Loading Test: positive Right / positive Left Range of motion of the lumbar spine Flexion 30 degrees, extension 10 degrees Straight Leg Raise test: Left> Right positive at 30 degrees Slade test: positive right / positive left. Severe tenderness over the Sacroiliac joint on the Right / Left sides Gaenslen test: positive bilaterally Seated flexion test: positive bilaterally. Sacral spine : Severe tenderness over the Sacroiliac joint: right side / left side Range of motion: Flexion of the lumbar spine <60 degrees Range of motion: Extension of the lumbar spine <20 degrees Gaenslen's Test positive Slade test: positive right side / left side Thigh Thrust Test Sacral Thrust Test Imaging: Noncontrast of the lumbar spine from 12/10/2022 reviewed Assessment/ Plan : Lumbar DDD Recommendation of DEJA L4-L5 #2. May need a series fo injections for optimal pain relief. Risks, benefits of procedure discussed and patient verbalized understanding. Admits to anti- coagulant use or medical history of diabetes. Protocol for discontinuation/ continuation of medications harpal procedure discussed. Minimal anesthesia provided, if clinically indicated, consisting of Versed and Fentanyl. All questions answered. I have spent greater than 30 minutes on patient care today. Dr Rodrigues was available by phone for the evaluation of this patient. The time was used to review the medical records including relevant urine studies and Prescription history (MAPs), review of the available imaging, evaluation and examination of the patient, coordination of care with the medical staff and if applicable referring physicians, as well as creation of the medical record PQRS Narrative: Hx Alcohol Use (MH) No Home Medications: Ambulatory Orders Atorvastatin [Lipitor] 20 mg PO DAILY 06/08/21 INSULIN ASPART (NovoLOG) [NovoLOG (formulary)] See Protocol SQ ACHS PRN 06/08/21 Insulin Glargine,Hum.rec.anlog [Lantus Solostar Pen] 25 unit SQ HS 06/08/21 Naproxen 500 mg PO DAILY 06/08/21 Venlafaxine HCl ER [Effexor Xr] 75 mg PO DAILY 06/08/21 lisinopriL [Zestril] 10 mg PO DAILY 06/08/21 Gabapentin [Neurontin] 300 mg PO TID 09/13/22 Pioglitazone [Actos] 30 mg PO DAILY 09/13/22 tiZANidine [Zanaflex] 4 mg PO DAILY 09/13/22 traMADol HCL 50 mg PO BID PRN 09/13/22 Hydroxychloroquine Sulfate [Plaquenil] 200 mg PO BID 07/17/23 Pentoxifylline [TRENtal] 400 mg PO AC-TID 07/17/23 Controlled Substance Measures - Controlled Substance Measures Is patient prescribed a controlled substance at discharge?: No
[2023-08-14 12:54] VITALS: PULSE 103; RESP 16; TEMP 97.1
== END ==
LOC: PNWHC3 12:00
PROVIDERS: ATTEND Specialist
DX: M51.36 Other intervertebral disc degeneration, lumbar region (principal); Z91.09 Other allergy status, other than to drugs and biological substances; Z88.8 Allergy status to other drugs, medicaments and biological substances
CPT/HCPCS: 99211

== ENCOUNTER 2023-09-04 09:43 | Day surgery (SDC) | payer OTHER ==
[2023-09-02 15:47] VITALS: BMI 37.3
[2023-09-04 11:00] VITALS: RESP 16; TEMP 98.8
[2023-09-04 11:01] LABS: Glucose,Whole Blood 160 mg/dL (70-110)
[2023-09-04] MEDS ORDERED: IOPAMIDOL M300 15ML VIAL ONE (11:43)
[2023-09-04] MEDS ORDERED: methylPREDNISolone ACETATE 80 MG/ML 1 ML VIAL ONE (11:43)
[2023-09-04] MEDS ORDERED: ROPIVACAINE 5MG/ML 20ML VIAL ONE (11:43)
[2023-09-04 12:21] VITALS: BP 123/79; PULSE 89
--- NOTE | 2023-09-04 13:00 | FL ---
Fluoroscopy History: BACK PAIN LESI, 10sec fl time, [id number]
== END 2023-09-04 12:33 | disposition home or self-care (01) ==
LOC: ORPAIN 09:43
PROVIDERS: ATTEND Pain Medicine Interventional Pain Medicine
DX: M48.061 Spinal stenosis, lumbar region without neurogenic claudication (principal); M47.816 Spondylosis without myelopathy or radiculopathy, lumbar region; M51.36 Other intervertebral disc degeneration, lumbar region; E11.9 Type 2 diabetes mellitus without complications; Z88.8 Allergy status to other drugs, medicaments and biological substances; Z79.1 Long term (current) use of non-steroidal anti-inflammatories (NSAID)
CPT/HCPCS: 62323; J1040; Q9967; J2795

== ENCOUNTER → 2023-09-18 | Outpatient (CLI) | payer OTHER ==
[2023-09-18 12:56] VITALS: BP 127/78; PULSE 92; RESP 16; TEMP 97.3
--- NOTE | 2023-09-18 13:34 | P.PAINPG ---
Objective - Vital Signs Vital signs: Intake & Output 09/17/23 09/18/23 09/18/23 18:59 06:59 18:59 Weight 124.738 kg PQRS Measure Charge Sheet Comment: HISTORY OF PRESENT ILLNESS: A 57 yr old male presents today w severe and chronic LBP x 10 yrs secondary to L2 compression fracture, DDD, spondylosis and facet arthropathy without myelopathy for evaluation s/p DEJA L4-L5 #2. Pt states he experienced 60 % pain relief x 1 wk s/p procedure. Pt states pain level is provoked at 7 /10 in intensity, constant, localized in the lumbar spine, predominantly axial, stabbing in character without shooting pain. Pain is provoked by standing/ sitting for periods > 20 min. Pain is alleviated by PT x 5 wks which he is currently in, medications, manual massage, repositioning and rest. He is getting additional imaging in the upcoming weeks but is unsure if he will undergo s urgery. Oswestry axial pain score at 23. Interventional procedures include DEJA L4-L5 x2 Medications include Tramadol #45, Zanaflex, Neurontin 300mg #90, Naproxen REVIEW OF ORGAN SYSTEMS: CONSTITUTIONAL: No fevers or chills. No recent weight loss. NEUROLOGICAL: + numbness and tingling along the distal extremities. No seizure disorders or headaches. MUSCULOSKELETAL: + pain PSYCHIATRIC: Denies current depression or suicidal thoughts. Physical Examinations : Constitutional : Cooperative , not in acute distress . Neurologic : Cranial nerve II to XII intact. No focal neurological deficits. Psychiatric : alert & oriented x 3. Matching mood & appropriate affect. Judgment & insight intact. Musculoskeletal : Cervical Spine Motor strength in the deltoid and biceps: Normal right side. Normal Left side Motor strength biceps and the wrist extensors: Normal right side . Normal left side Motor strength in the triceps muscle: Normal right side. Normal left side Deep tendon reflexes: Normal at the biceps. Normal at Brachioradialis. Normal at triceps Vertebral body tenderness to deep palpation over Cervical facet loading test: positive bilaterally Spurling test: positive bilaterally Neck distraction test: positive bilaterally Alicia sign: positive bilaterally Lumbar spine Motor strength lower extremities ,thigh and legs 5/5 Right side , 5/5 Left side Deep tendon reflexes : Normal Knee Jerk. Normal Ankle Jerk Vertebral body tenderness Covarrubias Test positive Lumbar facet Loading Test: positive Right / positive Left L4-L5, L5-S1 Range of motion of the lumbar spine Flexion 30 degrees, extension 10 degrees Straight Leg Raise test: Left> Right positive at 30 degrees Slade test: positive right / positive left. Severe tenderness over the Sacroiliac joint on the Right / Left sides Gaenslen test: positive bilaterally Seated flexion test: positive bilaterally. Sacral spine : Severe tenderness over the Sacroiliac joint: right side / left side Range of motion: Flexion of the lumbar spine <60 degrees Range of motion: Extension of the lumbar spine <20 degrees Gaenslen's Test positive Slade test: positive right side / left side Thigh Thrust Test Sacral Thrust Test Imaging: Noncontrast of the lumbar spine from 12/10/2022 reviewed Assessment/ Plan : Lumbar DDD Recommendation of BL MBB L3-L5 #1. May need a series fo injections, up until RFA, for optimal pain relief. Risks, benefits of procedure discussed and patient verbalized understanding. Admits to anti- coagulant use or medical history of diabetes. Protocol for discontinuation/ continuation of medications harpal procedure discussed. Minimal anesthesia provided, if clinically indicated, consisting of Versed and Fentanyl. All questions answered. I have spent greater than 30 minutes on patient care today. Dr Rodrigues was available by phone for the evaluation of this patient. The time was used to review the medical records including relevant urine studies and Prescription history (MAPs), review of the available imaging, evaluation and examination of the patient, coordination of care with the medical staff and if applicable referring physicians, as well as creation of the medical record PQRS Narrative: Hx Alcohol Use (MH) No Home Medications: Ambulatory Orders Atorvastatin [Lipitor] 20 mg PO DAILY 06/08/21 INSULIN ASPART (NovoLOG) [NovoLOG (formulary)] See Protocol SQ ACHS PRN 06/08/21 Insulin Glargine,Hum.rec.anlog [Lantus Solostar Pen] 25 unit SQ HS 06/08/21 Naproxen 500 mg PO DAILY 06/08/21 Venlafaxine HCl ER [Effexor Xr] 75 mg PO DAILY 06/08/21 lisinopriL [Zestril] 10 mg PO DAILY 06/08/21 Gabapentin [Neurontin] 300 mg PO TID 09/13/22 Pioglitazone [Actos] 30 mg PO DAILY 09/13/22 tiZANidine [Zanaflex] 4 mg PO DAILY 09/13/22 traMADol HCL 50 mg PO BID PRN 09/13/22 Hydroxychloroquine Sulfate [Plaquenil] 200 mg PO BID 07/17/23 Pentoxifylline [TRENtal] 400 mg PO AC-TID 07/17/23 Controlled Substance Measures - Controlled Substance Measures Is patient prescribed a controlled substance at discharge?: No
== END ==
LOC: PNWHC3 12:20
PROVIDERS: ATTEND Specialist
DX: M51.36 Other intervertebral disc degeneration, lumbar region (principal); Z91.09 Other allergy status, other than to drugs and biological substances; Z88.8 Allergy status to other drugs, medicaments and biological substances
CPT/HCPCS: 99211

== ENCOUNTER → 2023-10-16 | Outpatient (CLI) | payer OTHER ==
--- NOTE | 2023-10-16 12:05 | CT ---
EXAMINATION TYPE: CT lumbar spine wo con DATE OF EXAM: 10/16/2023 COMPARISON: HISTORY: back pain CT DLP: [address] of the lumbar spine was performed. Bone and soft tissue window settings are submitted as well as coronal and sagittal reconstructions. L1-L2: Normal disc space height. No disc herniation protrusion or central stenosis. No facet joint arthropathy. No evidence for foraminal encroachment. L2-L3: Normal disc space height. No disc herniation protrusion or central stenosis. No facet joint arthropathy. No evidence for foraminal encroachment. L3-L4: Mild degenerative disc space narrowing with posterior disc bulge. Effacement ventral thecal sa c with mild central stenosis. Thecal sac is congenitally diminutive in size. Foramina are patent bila terally. No eve herniation. L4-L5: Mild degenerative disc space narrowing with posterior disc bulge. Effacement ventral thecal sa c with moderate to severe central stenosis. Thecal sac is congenitally diminutive in size. Foramina a re patent bilaterally. No eve herniation. L5-S1: Moderate disc desiccation with posterior and to the left disc herniation. There is resultant m [id number] central stenosis and left lateral recess stenosis. Foramina are patent. No paraspinal masses are identified. Lumbar segments are free if fracture. IMPRESSION: 1. Multilevel degenerative disc disease with multilevel central stenosis. Suspect disc herniation at L5-S1 as outlined above.
== END | disposition home or self-care (01) ==
LOC: RADCTMAIN 10:37
PROVIDERS: ATTEND Orthopaedic Surgery
DX: M51.36 Other intervertebral disc degeneration, lumbar region (principal); M48.061 Spinal stenosis, lumbar region without neurogenic claudication; M47.812 Spondylosis without myelopathy or radiculopathy, cervical region
CPT/HCPCS: 72131

== ENCOUNTER 2024-01-15 10:08 | Day surgery (SDC) | payer OTHER ==
[~2024-01-15 10:08] MED LIST changes: +CYANOCOBALAMIN 500 MCG TAB ONE; -LACTATED RINGERS 1,000 ML IV SCH
[2024-01-15] MEDS ORDERED: LACTATED RINGERS 1,000 ML BAG ONE (10:50)
[2024-01-15] MEDS ORDERED: ROPIVACAINE 5MG/ML 20ML VIAL ONE (11:17)
[2024-01-15] MEDS ORDERED: MIDAZOLAM 2 MG/2 ML VIAL ONE (11:17)
--- NOTE | 2024-03-02 18:21 | FL ---
EXAMINATION TYPE: FL guided pain mgmt statistic DATE OF EXAM: 02/03/2024 4:57 PM COMPARISON: Pre Operative Images if available both CT/MRI or plain film CLINICAL INDICATION: Male, 58 years old with history of JOSE ANGEL LUM FB; TECHNIQUE: FL guided pain mgmt statistic, multiple fluoroscopic images provided for procedure. Total fluoroscopy time: 21.7 seconds Total submitted images to PACS: 4 DAP: [id number] mGym2 Gycm2 uGym2 cGycm2 or equivalent. FINDINGS: Fluoroscopic images during injection for pain management demonstrate multilevel degeneration changes throughout the spine. No evidence for fracture. No acute process identified. IMPRESSION: 1. No evidence for intraoperative complication. 2. Please see the operative/procedural note for further details. [facility], , 03/02/2024 6:18 PM
== END 2024-01-15 12:26 ==
LOC: ORPAIN 10:08
PROVIDERS: ATTEND Pain Medicine Interventional Pain Medicine
DX: M47.816 Spondylosis without myelopathy or radiculopathy, lumbar region (principal)
CPT/HCPCS: 99152

== ENCOUNTER → 2024-01-29 | Outpatient (CLI) | payer OTHER ==
[2024-01-29 09:46] VITALS: BP 117/78; PULSE 88; RESP 16; TEMP 98.9
--- NOTE | 2024-01-29 14:39 | P.PAINPG ---
PQRS Measure Charge Sheet Comment: HISTORY OF PRESENT ILLNESS: A 57 yr old male presents today w severe and chronic LBP x 10 yrs secondary to L2 compression fracture, DDD, spondylosis and facet arthropathy without myelopathy for evaluation s/p BL MBB L4-L5, L5-S1 #1. Pt states he experienced 50 % pain relief x 12 hrs s/p procedure. Pt states pain level is provoked at 8 /10 in intensity, constant, localized in the lumbar spine, predominantly axial, stabbing in character without shooting pain. Pain is provoked by standing/ sitting for periods > 20 min. Pain is alleviated by PT x 6 wks which ended in October 2023, HEP exercises every other day since Sep 2023, medications, manual massage, repositioning and rest. Interventional procedures include DEJA L4-L5 x2, BL MBB L3-L5 x1 Medications include Tramadol #45, Zanaflex, Neurontin 300mg #90, Naproxen REVIEW OF ORGAN SYSTEMS: CONSTITUTIONAL: No fevers or chills. No recent weight loss. NEUROLOGICAL: + numbness and tingling along the distal extremities. No seizure disorders or headaches. MUSCULOSKELETAL: + pain PSYCHIATRIC: Denies current depression or suicidal thoughts. Physical Examinations : Constitutional : Cooperative , not in acute distress . Neurologic : Cranial nerve II to XII intact. No focal neurological deficits. Psychiatric : alert & oriented x 3. Matching mood & appropriate affect. Judgment & insight intact. Musculoskeletal : Cervical Spine Motor strength in the deltoid and biceps: Normal right side. Normal Left side Motor strength biceps and the wrist extensors: Normal right side . Normal left side Motor strength in the triceps muscle: Normal right side. Normal left side Deep tendon reflexes: Normal at the biceps. Normal at Brachioradialis. Normal at triceps Vertebral body tenderness to deep palpation over Cervical facet loading test: positive bilaterally Spurling test: positive bilaterally Neck distraction test: positive bilaterally Aliica sign: positive bilaterally Lumbar spine Motor strength lower extremities ,thigh and legs 5/5 Right side , 5/5 Left side Deep tendon reflexes : Normal Knee Jerk. Normal Ankle Jerk Vertebral body tenderness Covarrubias Test positive Lumbar facet Loading Test: positive Right / positive Left L4-L5, L5-S1 Range of motion of the lumbar spine Flexion 30 degrees, extension 10 degrees Straight Leg Raise test: Left> Right positive at 30 degrees Lsade test: positive right / positive left. Severe tenderness over the Sacroiliac joint on the Right / Left sides Gaenslen test: positive bilaterally Seated flexion test: positive bilaterally. Sacral spine : Severe tenderness over the Sacroiliac joint: right side / left side Range of motion: Flexion of the lumbar spine <60 degrees Range of motion: Extension of the lumbar spine <20 degrees Gaenslen's Test positive Slade test: positive right side / left side Thigh Thrust Test Sacral Thrust Test Imaging: Noncontrast of the lumbar spine from 12/10/[address] non contrast lumbar spine from 10/16/23 reviewed Assessment/ Plan : Lumbar radiculopathy, Lumbar spondylosis Will explore additional treatment options w Dr Casanova. Pt states he has ample medications at hand for pain. All questions answered. I have spent greater than 30 minutes on patient care today. Dr Rodrigues was available by phone for the evaluation of this patient. The time was used to review the medical records including relevant urine studies and Prescription history (MAPs), review of the available imaging, evaluation and examination of the patient, coordination of care with the medical staff and if applicable referring physicians, as well as creation of the medical record PQRS Narrative: Hx Alcohol Use (MH) No Home Medications: Ambulatory Orders Atorvastatin [Lipitor] 20 mg PO DAILY 06/08/21 INSULIN ASPART (NovoLOG) [NovoLOG (formulary)] See Protocol SQ ACHS PRN 06/08/21 Insulin Glargine,Hum.rec.anlog [Lantus Solostar Pen] 25 unit SQ HS 06/08/21 Naproxen 500 mg PO DAILY 06/08/21 Venlafaxine HCl ER [Effexor Xr] 75 mg PO DAILY 06/08/21 lisinopriL [Zestril] 10 mg PO DAILY 06/08/21 Gabapentin [Neurontin] 300 mg PO TID 09/13/22 Pioglitazone [Actos] 30 mg PO DAILY 09/13/22 tiZANidine [Zanaflex] 4 mg PO DAILY 09/13/22 traMADol HCL 50 mg PO BID PRN 09/13/22 Hydroxychloroquine Sulfate [Plaquenil] 200 mg PO BID 07/17/23 Pentoxifylline [TRENtal] 400 mg PO AC-TID 07/17/23 Controlled Substance Measures - Controlled Substance Measures Is patient prescribed a controlled substance at discharge?: No
== END ==
LOC: PNWHC3 09:09
PROVIDERS: ATTEND Specialist
DX: M47.816 Spondylosis without myelopathy or radiculopathy, lumbar region
CPT/HCPCS: 99211

== ENCOUNTER → 2024-05-07 | Day surgery (SDC) | payer OTHER ==
[2024-05-06 10:17] VITALS: BMI 37.3
[~2024-05-07] MED LIST changes: -CYANOCOBALAMIN 500 MCG TAB ONE; +TRANEXAMIC 1,000 MG/100ML-NACL 1,000 MG in SALINE 1 100ML.BAG IVPB PRN; +ceFAZolin 3 GM in SODIUM CHLORIDE 0.9% 100 ML IVPB PRN
[2024-05-07 11:01] VITALS: TEMP 98
[2024-05-07] MEDS: IV FLUID CONTINUATION 1,000 ML IV ONE ×2 (11:06→14:24)
[2024-05-07 11:07] LABS: Glucose,Whole Blood 128 mg/dL (70-110)
[2024-05-07] MEDS: LACTATED RINGERS 1,000 ML BAG IV STA (11:11)
[2024-05-07] MEDS: GABAPENTIN 300 MG CAP PO PRN (11:15)
[2024-05-07] MEDS: ACETAMINOPHEN TAB 500 MG TAB PO PRN (11:15)
[2024-05-07] MEDS: ONDANSETRON 4 MG/2 ML VIAL IVP PRN (11:16)
--- NOTE | 2024-05-07 12:54 | P.HPOR ---
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 Newell presents to the office today, 04/16/24, for a recheck of his low back pain. Patient reports left sided lumbar pain that is increased with bending, walking, sitting, and standing. He recently recieved L4-5 and L5-S1 facet block injections at pain management. He states since these injections his pain has worsened significantly. He reports experiencing mild sleep disturbances related to his ongoing pain and associated symptoms. Patient is currently taking Tramadol, Gabapentin, Naproxen, and Xanaflex for his symptoms. Patient denies any f/c/sob/cp, perineal numbness or tingling, bowel, or bladder incontinence/retention. Patient is ambulatory independently. P1 The patients past social, medical, family, surgical history, as well as review of systems, have been reviewed. Please refer to the History and Physical form that has been scanned into our electronic medical record system. R0 16 points review of systems completed and as stated in HPI, all other systems reviewed are negative. PAST TREATMENTS: PAST IMAGING: YES - TRAUMA RELATED: NO - WORK RELATED: NO - PT IN LAST 6 MONTHS: NO - PHYSICIAN DIRECTED HOME EXERCISE PROGRAM: YES - ACTIVITY MODIFICAITON: YES - MEDICATIONS: YES, Tramadol, Gabapentin, Naproxen, Xanaflex - ALTERNATIVE INTERVENTIONS (CHIROPRACTIC, ACCUPUNCTURE, MASSAGE, RICE): YES - BRACING: NO - INJECTIONS (DEJA, TF, RFA): YES, L4-L5 and L5-S1 facet block injections with worsening of symptoms following injections. - MEDICAL HISTORY: Past Medical History: REVIEWED STATED IN CHART Past Surgical History: REVIEWED STATED IN CHART Social History: REVIEWED STATED IN CHART SMOKING: Never smoker ETOH: None SUBSTANCES: None Family History: REVIEWED STATED IN CHART P1 Current Medications: Rx: atorvastatin 20 mg tablet Ref: 0 Instructions: take 1 tablet (20 mg) by oral route once daily Rx: dentoxifylline , Ref: 0 Rx: gabapentin 300 mg capsule Ref: 0 Instructions: take 1 capsule (300 mg) by oral route 3 times per day Rx: Lantus U-100 Insulin Ref: 0 Rx: lisinopriL 10 mg tablet Ref: 0 Instructions: take 1 tablet (10 mg) by oral route once daily Rx: NovoLIN N Flexpen Ref: 0 Rx: pioglitazone 30 mg tablet Ref: 0 Instructions: take 1 tablet (30 mg) by oral route once daily Rx: tiZANidine 4 mg capsule Ref: 0 Instructions: take 1 capsule (4 mg) by oral route every 6-8 hours as needed not to exceed 3 doses in 24 hours Rx: ventafaxin 75 mg , Ref: 0 Rx: naproxen Ref: 0 Rx: traMADol Ref: 0 P1 PHYSICAL EXAM: General: AOX3, NAD, Well hydrate, well nourished HEENT: No lumps or masses Extremities: No color changes, no pooling Heart: RRR, no murmur, no gallop Lungs: CTAB, no w/r/r INTEGUMENT: Appearance: Normal color and turgor Surgical Incisions: none Hairy Patches: ABSENT Dorsal Skin Dimples: Normal [employer] spots: ABSENT PALPATION: TTP Midline: NO Paracervical: NO Parathoracic: NO Paralumbar: YES SIJ TESTING:TESTED * [place] Finger: - * FABER4: - * Compression:- * Distraction: - Thigh thrust: - * Hip thrust: - POSTURAL BALANCE: Coronal: BALANCED Sagittal: BALANCED Shoulder height: LEVEL Pelvic Girdle: LEVEL ROM AND APPEARANCE: Neck: UNRESTRICTED Lumbar: RESTRICTED with pain Shoulders: Symmetrical Hips: Symmetrical Knees: Symmetrical Hands: Symmetrical Feet: Symmetrical VASCULAR STATUS: PALPABLE PULSES B/L UE AND LE 2/4 RAD/ULNAR/DP/PT Edema: NONE NEUROLOGICAL EXAMINATION: Mental Status: Awake, alert, fully oriented with normal attention, concentration, and memory. Fluent appropriate speech. CRANIAL NERVES: I: Olfactory not assessed. II: Visual acuity normal, no visual field deficit noted with confrontation. III, IV: Normal pupillary reflexes & intact extraocular movements without nystagmus. V, : Intact symmetrical facial sensation. VII: Intact symmetrical facial motor movement: Hearing intact. IX, X: Intact gag, swallow, & normal voice. XI: Sternocleidomastoid, trapezius function intact. XII: Tongue midline with normal movements. TENSIONING: * L'HERMITTE'S SIG:NEG SPURLUNG'S SIGN:NEG CUBITAL TUNNEL COMPRESSION:NEG TINELS AT WRIST:NEG STRAIGH LEG RAISE:NEG CONTRALATERAL STRAIGHT LEG RAISE: NEG MOTOR EXAM (0-5/5, NT) Muscle appearance: Symmetrical, without signs of atrophy or dystrophy UPPER EXTREMITY RIGHT LEFT Shoulder Abduction 5 5 Biceps 5 5 Triceps 5 5 Wrist Extension 5 5 Hand Intrinsics 5 5 Pot Fluxer 5 5 LOWER EXTREMITY RIGHT LEFT Hip Flexion 5 5 Knee Extension 5 5 Knee Flexion 5 5 Dorsiflexion 5 5 Plantarflexion 5 5 EHL 5 5 FHL 5 5 REFLEXES (0-4/2, NT): RIGHT LEFT Bicep 2 2 Brachioradialis 2 2 Triceps 2 2 Patellar 2 2 Achilles 2 2 PATHOLOGICAL REFLEXES: RIGHT LEFT ROBERSON'S ABSENT ABSENT CLONUS ABSENT ABSENT BABINSKI ABSENT ABSENT RECTAL TONE: INTACT/NT SENSATION (0-4, NT): Sensation intact to LT and Pain * C5-T1 distribution BUE * L2-S2 distribution BLE *Exceptions below* DERMATOMAL DEFICIT/RADICULAR PATTERN: GAIT AND FUNCTIONAL EVALUATION: AMBULATORY AID NONE ROMBERG'S TEST INTACT HAND AND FINGER DEXTERITY INTACT YES DYSDIADOCHOKINESIA EXAM NEG B/L YES TOE/HEEL WALK INTACT WITH GOOD BALANCE YES SQUAT AND RISE W/O ASSISTANCE TO 60 DEG KNEE FLEXION YES SINGLE LEG STANCE INTACT TRENDELENBURG NEG IMAGING: No new images taken today IMPRESSION: It was my pleasure to have seen and examined Joon. I reviewed the patient's clinical syndrome, physical findings, and imaging studies during the appointment today. It is my impression that the patient has a diagnosis of. 1.L4-5 and L5-S1 facet arthrosis 2.Low back pain PLAN: DISCUSSION: -I have discussed with the patient his results and clinical signs and sx. I would like to confirm his findings on facet injections as there were no images saved for his procedure and it is difficult to tell what his result was. He states the first set of injections helped him, but that the second did not. They may have been in two different areas and this is difficult to assess without images. SURGICAL RECOMMENDATION -N/A THERAPIES -Cont. with home exercises and home PT exercises as able -Cont. with Heat/Ice as warranted -Cont. with supplementation Vit D, Vit C, Ca2+, High protein diet -OK for massage or other alternative treatment modalities as able. If it exacerbates your sx do not continue ACTIVITY -Recommend walking up to 30 min 2x daily on a flat easy surface with good support. MEDICATIONS -Take as directed -Cont. home medications as directed by your PCP. Check with your PCP for any medication interactions or issues if needed. IMAGING -N/A INJECTIONS -L4-5 and L5-S1 facet block injections with fluoroscopy in operating room FOLLOW UP: POST-OP PLAN AT NEXT VISIT: RECHECK AND evaluate injection results PATIENT EDUCATION: Medications Reviewed: YES In our visit today Mr. Newell and I have had a chance to go over my understanding of the patient's current condition, the natural course history without intervention and various interventional options. Questions were invited and answered, and the patient wishes to proceed as outlined above. I will be sure to keep you updated after Mr. Newell returns here for further follow-up. Thank you again for your referral. Please do not hesitate to contact me if you have any further questions. Signed and authenticated by: Hussein Brown [facility] [address] [place] [address] . This message is confidential, intended only for the named recipient(s) and may contain information that is privileged or exempt from disclosure under applicable law. If you are not the intended recipient(s), you are notified that the dissemination, distribution or copying of this information is prohibited. If you received this message in error, please notify the sender then delete this message. # SIGNED BY Hussein Casanova (GOO)04/25/2024 10:54AM Past Medical History Past Medical History: Diabetes Mellitus, Hyperlipidemia, Hypertension, Sleep Apnea/CPAP/BIPAP Additional Past Medical History / Comment(s): HX ETOH 5 years ago. Type II diabetic IDDM. Hasn't been using C-PAP machine lately. History of Any Multi-Drug Resistant Organisms: None Reported Past Surgical History: Orthopedic Surgery Additional Past Surgical History / Comment(s): splenectomy, spinal cord c2-t2 surgery. Colonoscopy Past Anesthesia/Blood Transfusion Reactions: No Reported Reaction Additional Past Anesthesia/Blood Transfusion Reaction / Comment(s): Blood pressure dropped with one surgery. No hx blood tansfusion to date. Smoking Status: Never smoker - Past Family History Father Family Medical History: Cancer Sister(s) Family Medical History: Cancer Additional Family Medical History / Comment(s): Abdominal cancer Medications and Allergies Home Medications Medication Instructions Recorded Confirmed Type Atorvastatin [Lipitor] 20 mg PO 1200 06/08/21 05/07/24 History INSULIN ASPART (NovoLOG) [NovoLOG See Protocol SQ ACHS PRN 06/08/21 05/07/24 History (formulary)] Insulin Glargine,Hum.rec.anlog 25 unit SQ HS 06/08/21 05/07/24 History [Lantus Solostar Pen] Naproxen 500 mg PO DAILY 06/08/21 05/06/24 History Venlafaxine HCl ER [Effexor Xr] 75 mg PO 1200 06/08/21 05/07/24 History lisinopriL [Zestril] 10 mg PO 1200 06/08/21 05/07/24 History Gabapentin [Neurontin] 300 mg PO TID 09/13/22 05/07/24 History Pioglitazone [Actos] 30 mg PO 1200 09/13/22 05/07/24 History tiZANidine [Zanaflex] 4 mg PO 1200 09/13/22 05/07/24 History traMADol HCL 50 mg PO BID PRN 09/13/22 05/07/24 History Allergies Allergy/AdvReac Type Severity Reaction Status Date / Time cat dander Allergy FACIAL Verified 05/07/24 10:46 SWELLING, ITCHING cat pelt standardized Allergy FACIAL Verified 05/07/24 10:46 allergenic ex SWELLING, ITCHING metformin Allergy Diarrhea Verified 05/07/24 10:46 Physical Examination Osteopathic Statement: *. No significant issues noted on an osteopathic structural exam other than those noted in the History and Physical/Consult. Results - Labs Labs: Abnormal Lab Results - Last 24 Hours (Table) 05/07/24 Range/Units 11:04 POC Glucose (mg/dL) 128 H (70-110) mg/dL"
[2024-05-07] MEDS: IOPAMIDOL M200 10 ML VIAL MISCELLANE ONE (13:01)
[2024-05-07] MEDS: LIDOCAINE 2%-EPI 1:100,000 20 ML VIAL SQ ONE (13:01)
[2024-05-07] MEDS: BUPIVACAINE (PF) 0.25% 30 ML VIAL SQ ONE (13:01)
[2024-05-07] MEDS: methylPREDNISolone ACETATE 40 MG/ML 1 ML VIAL MISCELLANE ONE (13:01)
[2024-05-07 13:22] VITALS: RESP 16
[2024-05-07 13:33] LABS: Glucose,Whole Blood 111 mg/dL (70-110)
[2024-05-07 14:26] VITALS: BP 125/79; PULSE 82
--- NOTE | 2024-05-07 14:53 | FL ---
EXAMINATION TYPE: FL guidance operating room DATE OF EXAM: 05/07/2024 FLUOROSCOPY SI join injection with Dr. Casanova 23 sec fl 5.7728 DAP 6 images are submitted. [facility], , 05/07/2024 2:51 PM
--- NOTE | 2024-05-09 16:17 | P.OP ---
Date of Procedure: 05/07/24 Preoperative Diagnosis: 1. L4-S1 FACET ARTHROSIS 2. LOW BACK PAIN Postoperative Diagnosis: 1. L4-S1 FACET ARTHROSIS 2. LOW BACK PAIN Procedure(s) Performed: 1. L4-S1 LEFT FACET INJECTIONS UNDER FLUROSCOPIC GUIDANCE Implants: NONE Anesthesia: BETH Surgeon: Hussein Casanova Estimated Blood Loss (ml): 2 IV fluids (ml): 0 Urine output (ml): 0 Pathology: none sent Condition: stable Disposition: PACU Indications for Procedure: 58 YO MALE WITH BACK PAIN AND FACETOGENIC PAIN PRESENTS FOR L4-S1 LEFT FACET DIAGNOSTIC BLOCKS. WE DISCUSSED RISKS AND BENEFITS OF THE PROCEDURE IN PRE OP AND HEW EXAMINED AGAIN. HE STATES AT REST HE HAS 4/10 PAIN BUT WITH MOTION HE HAS 9/10 PAIN IN THE LOW BACK AND IS WORSE WITH TWISTING AND BENDING ON THE LEFT AND IS SHARP IN NATURE. DOES NOT SHOOT DOWN LEG OR RADIATE. wE WILL REASSESS AFTER INJECTIONS TO DETERMINE EFFECTIVENESS. hE STATES HE UNDERSTANDS AND IS READY FOR PROCEDURE. Description of Procedure: L4-S1 Facet Blocks, (LEFT) The patient was seen and examined in the preoperative area. All preoperative protocols were followed. Informed consent was obtained, risks and benefits of the procedure were discussed at length. Risks including bleeding infection damage to the surrounding tissue and risk of reoperation were discussed with the patient. Risk of anesthesia up to and including was discussed with the patient. These are outlined in the risk review. They were willing to accept these risks and all of the risks of surgery. The patient was seen and evaluated by the anesthesia team who deemed them fit for surgery. The site was marked, the patient was willing to proceed with the procedure. The patient was transferred to the operative suite. The patient was transferred to a prone Ghulam table carefully. All bony prominences including wrists, elbows, axilla, chest, hips, and thighs, and feet were padded very well. Special attention was paid to the genitalia and these were padded accordingly. SCDs were placed on bilateral lower extremities and were connected. Arms were well padded and placed [on arm boards up and out in the 90/90 position]. Once in position, again we confirmed good ventilation capabilities and that lines were running appropriately. The patient's Lumbar spine was then exposed. 1010s were placed outlining the incision site. Standard alcohol was used to clean the injection site and allowed to dry. C-arm was used to biomark the patient and confirm level for injection which was marked with a skin marker. Operative briefing was performed with all teams and everyone in agreement to proceed. The patient was then prepped and draped in a normal sterile fashion. Timeout was then performed and all parties were in agreement with the procedure to be performed. Injections sites were then anesthetized with local anesthetic in the form of 0.25%d marcaine plain and 2% lidocaine with epi. Once local anesthetic was achieved using biplanar fluroscopy a spinal needle was introduced into the L4-5 facet joint on the left side. Isovue was used to confirm in the joint and this was seen on fluroscopy. Once this was confirmed a mixture of 0.25% marcaine, 2% lidocaine and 0.5cc of methylprednisolone 40mg/ml was injected into the L4-5 facet joint on the left. This was tolerated well by the patient and there were no radicular signs. This was then repeated at L5-S1 on the left as well confirming with biplanar imaging within the joint and surrounding capsule. The needles were then withdrawn and the patient tolerated this procedure very well. The injection site was cleaned dressed with a band aid. The patient was transferred back to their hospital bed atraumatically. They were transferred to the postoperative care unit in stable condition. Upon evaluation in the PACU about 30 min after procedure the patient stated that his back pain which was previously a 3/10 at rest in bed was similar but decreased to around a 1/10 after injection. He had not been up and walking yet but after he was will be assessed again for pain by nursing and they will provide a note. He will then document his pain over the next few hours and until he sees me again in office.
== END | disposition home or self-care (01) ==
LOC: OR 10:29
PROVIDERS: ATTEND Orthopaedic Surgery
DX: M47.817 Spondylosis without myelopathy or radiculopathy, lumbosacral region (principal); E78.5 Hyperlipidemia, unspecified; I10 Essential (primary) hypertension; G47.30 Sleep apnea, unspecified; E11.9 Type 2 diabetes mellitus without complications; Z79.4 Long term (current) use of insulin; Z79.1 Long term (current) use of non-steroidal anti-inflammatories (NSAID); Z79.02 Long term (current) use of antithrombotics/antiplatelets; Z79.899 Other long term (current) drug therapy
CPT/HCPCS: 64493; J2405; Q9966; J0665; J1010

== ENCOUNTER → 2024-08-11 | Outpatient (CLI) | payer OTHER ==
--- NOTE | 2024-08-11 14:49 | XR ---
EXAMINATION TYPE: XR chest 2V DATE OF EXAM: 08/11/2024 1:37 PM COMPARISON: 09/13/2022 CLINICAL INDICATION: Male, 58 years old with history of PRE SURG TESTING; TECHNIQUE: XR chest 2V Frontal and lateral views of the chest. FINDINGS: Lungs/Pleura: There is no evidence of pleural effusion, focal consolidation, or pneumothorax. Pulmonary vascularity: Unremarkable. Heart/mediastinum: Cardiomediastinal silhouette is unremarkable. Musculoskeletal: No acute osseous pathology. There is fixation hardware in the lower cervical spine. IMPRESSION: No acute cardiopulmonary disease/process. [facility], , 08/11/2024 2:46 PM
[2024-08-11 18:31] LABS: HCT 45.8 % (39.6-50.0); HGB 15.4 g/dL (13.0-17.0); INR 0.99 sec (0.93-1.11); MCH 30.8 pg (27.0-32.0); MCHC 33.6 g/dL (32.0-37.0); MCV 91.6 FL (80.0-97.0); NRBC Per 100 WBC 0 X 10*3/uL (0.00-0.01); Platelet Count 402 X 10*3/uL (140-440); Prothrombin Time 11.3 sec (9.9-11.9); RDW 12.8 % (11.5-14.5); WBC 14.62 X 10*3/uL (4.50-10.00)
[2024-08-11 18:40] LABS: Blood Urea Nitrogen 16.7 mg/dL (9.0-27.0); Calcium 9.2 mg/dL (8.7-10.3); Carbon Dioxide 27.4 mmol/L (21.6-31.8); Chloride 102 mmol/L (96-109); Glucose 139 mg/dL (70-110); Potassium 4.8 mmol/L (3.5-5.5); Sodium 139 mmol/L (135-145)
== END | disposition home or self-care (01) ==
LOC: LABPAT 12:54
PROVIDERS: ATTEND Orthopaedic Surgery
DX: Z01.818 Encounter for other preprocedural examination (principal); I10 Essential (primary) hypertension; M46.96 Unspecified inflammatory spondylopathy, lumbar region; R06.02 Shortness of breath; Z79.899 Other long term (current) drug therapy
CPT/HCPCS: 71046; 80048; 85027; 85610; 93005

== ENCOUNTER 2024-08-31 05:45 | Day surgery (SDC) | payer OTHER ==
[~2024-08-31 05:45] MED LIST changes: +GABAPENTIN 300 MG CAP PO PRN; +ONDANSETRON 4 MG/2 ML VIAL IVP PRN; -ceFAZolin 3 GM in SODIUM CHLORIDE 0.9% 100 ML IVPB PRN
[2024-08-31] MEDS ORDERED: LIDOCAINE 1% (10MG/ML) FOR IV START INTRADERMA PRN (05:51)
[2024-08-31] MEDS: IV FLUID CONTINUATION 1,000 ML IV ONE ×2 (06:25)
[2024-08-31 06:43] LABS: Glucose,Whole Blood 164 mg/dL (70-110)
[2024-08-31] MEDS ORDERED: HYDROmorphone 0.5 MG/0.5 ML SYRINGE IVP PRN (07:00)
[2024-08-31] MEDS: LACTATED RINGERS 1,000 ML IV SCH (07:00)
[2024-08-31] MEDS: ONDANSETRON 4 MG/2 ML VIAL IVP ONE (07:00)
[2024-08-31] MEDS: ACETAMINOPHEN TAB 500 MG TAB PO PRN (07:00)
[2024-08-31] MEDS ORDERED: MIDAZOLAM 2 MG/2 ML VIAL IV PRN (07:00)
[2024-08-31] MEDS ORDERED: fentaNYL (PF) 50 MCG/ML 2 ML AMP IVP PRN (07:00)
[2024-08-31] MEDS: DEXAMETHASONE SOD PHOSPHATE 4 MG/ML 1 ML VIAL IV ONE (07:03)
[2024-08-31] MEDS ORDERED: ePHEDrine 50 MG/ML 1 ML VIAL ONE (07:23)
[2024-08-31] MEDS ORDERED: ROCURONIUM 10 MG/ML (5 ML VIAL) IV ONE (07:23)
[2024-08-31] MEDS ORDERED: fentaNYL (PF) 50 MCG/ML 2 ML AMP ONE (07:23)
[2024-08-31] MEDS ORDERED: MIDAZOLAM 2 MG/2 ML VIAL ONE (07:23)
[2024-08-31] MEDS ORDERED: KETOROLAC 15 MG/ML 1 ML VIAL ONE (07:23)
[2024-08-31] MEDS ORDERED: SUCCINYLCHOLINE CHLORIDE 200 MG/10 ML VIAL IV ONE (07:23)
[2024-08-31] MEDS ORDERED: LIDOCAINE 1% INJ 10MG/ML (20 ML MDV) ONE (07:23)
[2024-08-31] MEDS ORDERED: TRANEXAMIC 1,000 MG/100ML-NACL PREMIX BAG ONE (07:23)
[2024-08-31] MEDS ORDERED: LIDOCAINE 4% LTA KIT (4 ML) TOPICAL ONE (07:23)
[2024-08-31] MEDS ORDERED: GLYCOPYRROLATE 0.2 MG/ML 2 ML VIAL ONE (07:23)
[2024-08-31] MEDS ORDERED: PROPOFOL 10 MG/ML 20 ML VIAL IV ONE (07:23)
[2024-08-31] MEDS ORDERED: NEOSTIGMINE 1 MG/ML 10 ML VIAL ONE (07:23)
[2024-08-31] MEDS: ceFAZolin 3 GM in SODIUM CHLORIDE 0.9% 100 ML IVPB PRN (07:29)
--- NOTE | 2024-08-31 07:30 | P.HPOR ---
"History of Present Illness H&P Date: 08/31/24 .D:Date: 07/23/24 : 01:23pm .T:Title: RECHECK H1 [facility] [address] [place] [id number]| PROVIDER: KAILYN REYES DO CLINICAL SUMMARY: Mr. Newell is a 58-year-old male who presents for follow-up evaluation of chronic low back pain. Patient previously underwent L4-S1 left facet block injections under fluoroscopic guidance on 05/07/24, reporting 80-100% improvement in symptoms lasting approximately one month. Current symptoms include left-sided lumbar pain exacerbated by bending, walking, sitting, and standing, with associated mild sleep disturbances. Imaging studies demonstrate moderate to severe facet arthrosis at L4-5 and L5-S1 bilaterally with facet hypertrophy, osteophytosis, and air in facet joints. Current management includes Tramadol, Gabapentin, and Naproxen. After thorough discussion of treatment options, risks, and benefits, patient has elected to proceed with L4-S1 left medial branch transection under direct visualization. Patient to obtain medical clearance from PCP prior to surgical intervention. Patient ambulates independently and denies any constitutional symptoms, perineal numbness/tingling, or bowel/bladder dysfunction. DEMOGRAPHICS: Age: 58 year Height: 6' Weight: 287 lbs BP:122/70 BMI: 38.92 kg/m2 Occupation: Disabled CC: lumbar pain VAS: 3 HISTORY: Mr. Newell presents to the office today, 07/23/24, for a recheck of his low back pain. Patient received L4-S1 left facet block injections done under fluoroscopy in the operating room on 05/07/24. Patient states the procedure improved his symptoms by 80-100% for 1 month. Patient reports left sided lumbar pain that is increased with bending, walking, sitting, and standing. He reports experiencing mild sleep disturbances related to his ongoing pain and associated symptoms. Patient is currently taking Tramadol, Gabapentin, and Naproxen for his symptoms. Patient ambualtes independently. * Patient denies any f/c/sob/cp, perineal numbness or tingling, bowel, or bladder incontinence/retention. * The patients past social, medical, family, surgical history, as well as review of systems, have been reviewed. Please refer to the History and Physical form that has been scanned into our electronic medical record system. * 16 points review of systems completed and as stated in HPI, all other systems reviewed are negative. PAST TREATMENTS: PAST IMAGING: YES -XR MRI, CT TRAUMA RELATED: NO - WORK RELATED: NO - PT IN LAST 6 MONTHS: NO - PHYSICIAN DIRECTED HOME EXERCISE PROGRAM: YES - ACTIVITY MODIFICATION: YES - MEDICATIONS: YES, Tramadol, Gabapentin, Naproxen - ALTERNATIVE INTERVENTIONS (CHIROPRACTIC, ACUPUNCTURE, MASSAGE, RICE): YES - BRACING: NO - INJECTIONS (DEJA, TF, RFA): YES, L4-L5 and L5-S1 facet block injections under flouroscopy with 80% relief MEDICAL HISTORY: Past Medical History: REVIEWED STATED IN CHART Past Surgical History: REVIEWED STATED IN CHART Social History: REVIEWED STATED IN CHART SMOKING: Never smoker ETOH: None SUBSTANCES: None Family History: REVIEWED STATED IN CHART P1 Current Medications: Rx: atorvastatin 20 mg tablet Ref: 0 Instructions: take 1 tablet (20 mg) by oral route once daily Rx: dentoxifylline , Ref: 0 Rx: gabapentin 300 mg capsule Ref: 0 Instructions: take 1 capsule (300 mg) by oral route 3 times per day Rx: Lantus U-100 Insulin Ref: 0 Rx: lisinopriL 10 mg tablet Ref: 0 Instructions: take 1 tablet (10 mg) by oral route once daily Rx: NovoLIN N Flexpen Ref: 0 Rx: pioglitazone 30 mg tablet Ref: 0 Instructions: take 1 tablet (30 mg) by oral route once daily Rx: tiZANidine 4 mg capsule Ref: 0 Instructions: take 1 capsule (4 mg) by oral route every 6-8 hours as needed not to exceed 3 doses in 24 hours Rx: ventafaxin 75 mg , Ref: 0 Rx: naproxen Ref: 0 Rx: traMADol Ref: 0 P1 PHYSICAL EXAM: General: AOX3, NAD, Well hydrate, well nourished, in no acute distress HEENT: No lumps or masses Extremities: No color changes, no pooling INTEGUMENT: Appearance: Normal color and turgor Surgical Incisions: healed Hairy Patches: ABSENT Dorsal Skin Dimples: Normal [employer] spots: ABSENT PALPATION: TTP Midline: NO Paracervical: NO Parathoracic: NO Paralumbar: YES SIJ TESTING:TESTED * [place] Finger: - * FABER4: - * Compression:- * Distraction: - Thigh thrust: - * Hip thrust: - POSTURAL BALANCE: Coronal: BALANCED Sagittal: BALANCED Shoulder height: LEVEL Pelvic Girdle: LEVEL ROM AND APPEARANCE: Neck: UNRESTRICTED Lumbar: RESTRICTED with pain. PAIN WITH ROM. PAIN WITH FACET LOADING. PAIN WITH BACK BENDING AND SIDE BENDING. Shoulders: Symmetrical Hips: Symmetrical Knees: Symmetrical Hands: Symmetrical Feet: Symmetrical VASCULAR STATUS: PALPABLE PULSES B/L UE AND LE 2/4 RAD/ULNAR/DP/PT Edema: NONE NEUROLOGICAL EXAMINATION: Mental Status: Awake, alert, fully oriented with normal attention, concentration, and memory. Fluent appropriate speech. CRANIAL NERVES: I: Olfactory not assessed. II: Visual acuity normal, no visual field deficit noted with confrontation. III, IV: Normal pupillary reflexes & intact extraocular movements without nystagmus. V, : Intact symmetrical facial sensation. VII: Intact symmetrical facial motor movement: Hearing intact. IX, X: Intact gag, swallow, & normal voice. XI: Sternocleidomastoid, trapezius function intact. XII: Tongue midline with normal movements. TENSIONING: * L'HERMITTE'S SIG:NEG SPURLUNG'S SIGN:NEG CUBITAL TUNNEL COMPRESSION:NEG TINELS AT WRIST:NEG STRAIGH LEG RAISE:NEG CONTRALATERAL STRAIGHT LEG RAISE: NEG MOTOR EXAM (0-5/5, NT) Muscle appearance: Symmetrical, without signs of atrophy or dystrophy UPPER EXTREMITY RIGHT LEFT Shoulder Abduction 5 5 Biceps 5 5 Triceps 5 5 Wrist Extension 5 5 Hand Intrinsics 5 5 Lunchroom Operator 5 5 LOWER EXTREMITY RIGHT LEFT Hip Flexion 5 5 Knee Extension 5 5 Knee Flexion 5 5 Dorsiflexion 5 5 Plantarflexion 5 5 EHL 5 5 FHL 5 5 REFLEXES (0-4/2, NT): RIGHT LEFT Bicep 2 2 Brachioradialis 2 2 Triceps 2 2 Patellar 2 2 Achilles 2 2 PATHOLOGICAL REFLEXES: RIGHT LEFT ROBERSON'S ABSENT ABSENT CLONUS ABSENT ABSENT BABINSKI ABSENT ABSENT RECTAL TONE: INTACT/NT SENSATION (0-4, NT): Sensation intact to LT and Pain * C5-T1 distribution BUE * L2-S2 distribution BLE *Exceptions below* DERMATOMAL DEFICIT/RADICULAR PATTERN: NONE GAIT AND FUNCTIONAL EVALUATION: AMBULATORY AID NONE ROMBERG'S TEST INTACT HAND AND FINGER DEXTERITY INTACT YES DYSDIADOCHOKINESIA EXAM NEG B/L YES TOE/HEEL WALK INTACT WITH GOOD BALANCE YES SQUAT AND RISE W/O ASSISTANCE TO 60 DEG KNEE FLEXION YES SINGLE LEG STANCE INTACT [place]EN[place]G NEG IMAGING: XRAY Date: 05/21/24 Location: [facility] Region: Lumbar Views: 2v IMAGES ARE REVIEWED WITH THE PATIENT IN OFFICE AND DEMONSTRATE THE FOLLOWING: FINDINGS: MODERATE TO SEVERE FACET ARTHROSIS AT L4-5 AND L5-S1 BILATERALLY WITH FACET HYPERTROPHY, OSTEOPHYTOSIS AND AIR IN FACET JOINTS. THERE IS SEVERE DEGENERATIVE CHAGNES AT THESE LEVELS FACET BUT THE DISCS MAINTAIN REASONABLE HEIGHT. NO FRACTUES OR LESIONS. CT Date: 10/16/2023 Location: [facility] Region:Lumbar Contrast:N Images reviewed. Multilevel spondylosis lumbar spine Disc degeneration and height loss Facet arthrosis, severe b/l L4-S1 Old L2 VCF noted No other fracture or lesions. IMPRESSION: It was my pleasure to have seen and examined Joon. I reviewed the patient's clinical syndrome, physical findings, and imaging studies during the appointment today. It is my impression that the patient has a diagnosis of. 1.L4-S1 facet arthrosis SEVERE 2.Low back pain PLAN: DISCUSSION: -I have discussed with the patient their clinical signs and symptoms, imaging, and treatment options. We have discussed risks, benefits, potential outcomes and natural course as pertains top their issues. The patient understands and would like to proceed as follows below: SURGICAL RECOMMENDATION -L4-S1 LEFT MEDIAL BRANCH TRANSECTION UNDER DIRECT VISUALIZATION THERAPIES -Cont. with home exercises and home PT exercises as able -Cont. with Heat/Ice as warranted -Cont. with supplementation Vit D, Vit C, Ca2+, High protein diet -OK for massage or other alternative treatment modalities as able. If it exacerbates your sx do not continue ACTIVITY -Recommend walking up to 30 min 2x daily on a flat easy surface with good support. -WORK STATUS: N/A MEDICATIONS -Take as directed -Cont. home medications as directed by your PCP. Check with your PCP for any medication interactions or issues if needed. IMAGING -N/A INJECTIONS -N/A Spine Surgery Risk Review Mr. Newell is presenting for evaluation of lumbar pain. It was my pleasure to have seen and examined Mr. Newell. In our visit today we have had a chance to go over subjective complaints, physical examination findings and treatments including the natural course history without intervention and various interventional options. The patients imaging demonstrates: XRAY Date: 05/21/24 Location: [facility] Region: Lumbar Views: 2v IMAGES ARE REVIEWED WITH THE PATIENT IN OFFICE AND DEMONSTRATE THE FOLLOWING: FINDINGS: MODERATE TO SEVERE FACET ARTHROSIS AT L4-5 AND L5-S1 BILATERALLY WITH FACET HYPERTROPHY, OSTEOPHYTOSIS AND AIR IN FACET JOINTS. THERE IS SEVERE DEGENERATIVE CHAGNES AT THESE LEVELS FACET BUT THE DISCS MAINTAIN REASONABLE HEIGHT. NO FRACTUES OR LESIONS. CT Date: 10/16/2023 Location: [facility] Region:Lumbar Contrast:N Images reviewed. Multilevel spondylosis lumbar spine Disc degeneration and height loss Facet arthrosis, severe b/l L4-S1 Old L2 VCF noted No other fracture or lesions. On physical exam, Mr. Newell demonstrates: Patient reports left sided lumbar pain that is increased with bending, walking, sitting, and standing. He reports experiencing mild sleep disturbances related to his ongoing pain and associated symptoms. Patient is currently taking Tramadol, Gabapentin, and Naproxen for his symptoms. I have explained to the patient that as their condition progresses it will cause further neurological deficits and eventual paralysis. Based on the patients imaging, physical exam, and the rapid progression and disabling nature of their symptoms, at this time I recommend surgery in the form of a: L4-S1 LEFT MEDIAL BRANCH TRANSECTION UNDER DIRECT VISUALIZATION. I discussed the risk and benefits of this procedure at length with Mr. Newell. The patient agreed to considered pursuing the procedure abovementioned. Prior to surgery, she should follow up with her PCP (Cardio, ID, IM etc) for clearance. Questions were invited and answered, and the patient wishes to proceed as outlined below. Currently, I am recommendin.L4-S1 LEFT MEDIAL BRANCH TRANSECTION UNDER DIRECT VISUALIZATION 2.Follow up with PCP for surgical clearance 3.Review of surgical risks and benefits as well as an educational packet on the proposed surgical procedure. Risks: All surgical procedures come with inherent risks, including those related to positioning, anesthesia, intraoperative findings, and postoperative complications. It is important to understand that surgery does not come with any guarantee of a successful outcome as complications and adverse events are always possible. The patient was given a handout in office today discussing the surgical procedure and risks associated with the intervention, both of which were discussed with the patient. These risks include but are not limited to the following: * Experiencing same, different or even worse symptoms in back, neck, arms, or legs compared to before surgery. Requiring further surgery or other forms of treatment presently or at some time in the future at same or other levels of the intended spine surgery. On an extreme but fortunately relatively rare basis severe complication such as blindness, stroke, heart attack, temporary and/or permanent nerve injury, paralysis, coma, or may occur, sometimes without known explanation. Surgical complications may include but are not limited to risk of infection, fluid accumulation in the surgical dissection site, including a seroma or hematoma, that requires additional surgery, wound drainage, bleeding, new numbness or weakness, vision changes/loss, spinal fluid leakage, non-healing and/or infected incision, headaches, difficulty or inability to swallow, hoarseness, hemopneumothorax, pneumothorax, impotence, retrograde ejaculation, vaginal dryness; injury to nerves, spinal cord, blood vessels, lymphatics or other vital organs (i.e., bowel injury, injury to the great vessels); heterotopic bone formation; complications related to the hardware such as screws, rods, cages including misplaced hardware, device failure, instrumentation at the wrong spine level, hardware fracture/breakage, or hardware loosening; vertebral failure of the spinal column above or below the newly placed hardware; retained surgical instrumentations or devices and the need for further surgery. * Medical risks of the planned spine surgery include but are not limited to generalized Infections to the whole body or local areas outside of the surgical site (sepsis), heart attack, bleeding, anaphylaxis, meningitis, se izure, epilepsy, hearing loss, burn marquez, laceration of the head or other areas of the body, bruising, hypersensitivity of the skin, bladder over distension; allergic reaction; shoulder injury related to positioning; fat, blood and air clots to other areas of the body like heart, lungs, brain; failure of internal organs such as lungs, kidneys, liver and excessive bleeding. If blood transfusions are necessary, note that transfusions may cause intolerance reactions such as anaphylaxis or other complex reactions. Despite best efforts, the results of spine surgery might not heal in terms of bone, soft tissues such as skin, fascia, ligaments, and joints. Additionally, in order to achieve best possible results, spine surgery may be carried out beyond the initially planned levels and involve decompression, fusion including insertion of hardware at levels other than the original intended area of surgical interest change some portions of the procedure in order to ensure the best possible outcomes. With spine surgery and spinal fusion, there are different off label uses of instrumentation (devices, implants and hardware) as well as biological substances (bone morphogenic proteins, demineralized bone matrix) as well as using extra bone from allograft sources (i.e. cadaver bone) or autograft (iliac crest bone, ribs, or the spine itself). The patient has been given information about these practices and their inherent risks and benefits. [facility] is an educational center that serves as a training facility for neurosurgical and orthopedic MOTOR BIKE MECH[employer]IC and Nursing students. Physician assistants are medically trained surgical providers who function in the outpatient, inpatient, and operating room setting under the direct supervision of the attending surgeon. [facility] has multiple operating rooms with single and overlapping rooms running daily. They currently function under the required guidelines as produced by the [facility] [employer] Committee with regards to the overlapping rooms and will continue to comply with changes to this policy as they occur. The requirements include and are complied with as follows: (1) the critical portions of the overlapping rooms will not occur at the same time, (2) the attending physician will be physically present during the critical portions of the procedure and immediately available during the entire case, and (3) a back-up attending is designated should the primary attending not be immediately available. The patient has had a chance to review all the listed information, has been given print outs detailing this information, and has had all his/her questions answered to their satisfaction. It was my pleasure to have seen and examined Mr. Newell. In our visit today we have had a chance to go over my understanding of our patient's current condition, the natural course history without intervention and various interventional options. Questions were invited and answered, and the patient wishes to proceed as outlined above. I have seen and examined the patient for 25 minutes and we have spent more than 50% of the time in repeat and detailed counseling about the patient's condition, its natural course history with out and as much as can be predicted with surgery and re-review of various surgical treatment options. In conclusion, Mr. Newell requested we proceed with the above suggested surgery and are willing to accept risks and limitations of the suggested surgery as nature of the disease process and our best attempts at treatment for the condition. MEDICAL NECESSITY NOTE: Mr. Newell is a 58-year-old male with documented severe facet arthrosis at L4-S1 levels, confirmed by imaging studies showing facet hypertrophy, osteophytosis, and air in facet joints. The patient has demonstrated a positive response to diagnostic facet blocks with 80-100% temporary relief, confirming facet-mediated pain. Conservative management including medications (Tramadol, Gabapentin, Naproxen), physical therapy, and activity modifications have failed to provide sustained relief. The patient's condition significantly impacts daily activities, including walking, sitting, and standing, with associated sleep disturbances. Given the chronic nature of symptoms, documented pathology, failed conservative measures, and positive diagnostic response to facet blocks, medial branch transection is medically necessary to address the patient's debilitating symptoms and improve functional status. SURGICAL RATIONALE NOTE: The proposed L4-S1 left medial branch transection under direct visualization is indicated based on multiple clinical factors. The patient demonstrates clear anatomical pathology on imaging studies corresponding to their symptoms, with severe facet arthrosis at the L4-S1 levels. Diagnostic facet blocks performed on 05/07/24 provided significant temporary relief (80-100% improvement), establishing a clear pain generator and predicting favorable surgical outcomes. The patient's BMI of 38.92 and comorbidities have been considered in the surgical planning. The chosen surgical approach allows for precise targeting of the affected medial branches under direct visualization, potentially providing more definitive relief compared to temporary blocking procedures. The patient understands the risks, benefits, and alternative treatments, and has elected to proceed with surgical intervention after failing conservative management. FOLLOW UP: Post-Op PLAN AT NEXT VISIT: RECHECK PATIENT EDUCATION: Medications Reviewed: YES In our visit today Mr. Newell and I have had a chance to go over my understanding of the patient's current condition, the natural course history without intervention and various interventional options. Questions were invited and answered, and the patient wishes to proceed as outlined above. I will be sure to keep you updated after Mr. Newell returns here for further fol low-up. Thank you again for your referral. Please do not hesitate to contact me if you have any further questions. Signed and authenticated by: Kailyn Brown [facility] [address] [place] [id number] . This message is confidential, intended only for the named recipient(s) and may contain information that is privileged or exempt from disclosure under applicable law. If you are not the intended recipient(s), you are notified that the dissemination, distribution or copying of this information is prohibited. If you received this message in error, please notify the sender then delete this message. # SIGNED BY Kailyn Reyes ([facility])08/08/2024 11:07AM Past Medical History Past Medical History: Cancer, Diabetes Mellitus, Hyperlipidemia, Hypertension, Sleep Apnea/CPAP/BIPAP Additional Past Medical History / Comment(s): Type II diabetic IDDM. No CPAP. Prostate ca 2020. History of Any Multi-Drug Resistant Organisms: None Reported Past Surgical History: Orthopedic Surgery Additional Past Surgical History / Comment(s): splenectomy, spinal cord c2-t2 surgery. Colonoscopy. neck surg Past Anesthesia/Blood Transfusion Reactions: No Reported Reaction Additional Past Anesthesia/Blood Transfusion Reaction / Comment(s): Blood pressure dropped after last back surg 2017. No hx blood tansfusion to date. Smoking Status: Never smoker - Past Family History Father Family Medical History: Cancer Sister(s) Family Medical History: Cancer Additional Family Medical History / Comment(s): Abdominal cancer Medications and Allergies Home Medications Medication Instructions Recorded Confirmed Type Atorvastatin [Lipitor] 20 mg PO 1200 06/08/21 08/31/24 History INSULIN ASPART (NovoLOG) [NovoLOG See Protocol SQ ACHS PRN 06/08/21 08/31/24 History (formulary)] Insulin Glargine,Hum.rec.anlog 25 unit SQ HS 06/08/21 08/31/24 History [Lantus Solostar Pen] Naproxen 500 mg PO DAILY 06/08/21 08/31/24 History Venlafaxine HCl ER [Effexor Xr] 75 mg PO 1200 06/08/21 08/31/24 History lisinopriL [Zestril] 10 mg PO 1200 06/08/21 08/31/24 History Gabapentin [Neurontin] 300 mg PO TID 09/13/22 08/31/24 History Pioglitazone [Actos] 30 mg PO 1200 09/13/22 08/31/24 History tiZANidine [Zanaflex] 4 mg PO 1200 09/13/22 08/31/24 History traMADol HCL 50 mg PO BID PRN 09/13/22 08/31/24 History Cyclobenzaprine [Flexeril] 5 mg PO TID #21 tablet 05/07/24 08/31/24 Rx Allergies Allergy/AdvReac Type Severity Reaction Status Date / Time cat dander Allergy FACIAL Verified 08/31/24 06:15 SWELLING, ITCHING cat pelt standardized Allergy FACIAL Verified 08/31/24 06:15 allergenic ex SWELLING, ITCHING metformin Allergy Diarrhea Verified 08/31/24 06:15 Physical Examination Osteopathic Statement: *. No significant issues noted on an osteopathic structural exam other than those noted in the History and Physical/Consult. Results - Labs Labs: Abnormal Lab Results - Last 24 Hours (Table) 08/31/24 Range/Units 06:42 POC Glucose (mg/dL) 164 H (70-110) mg/dL"
[2024-08-31] MEDS: LIDOCAINE 2%-EPI 1:100,000 20 ML VIAL SQ ONE (07:55)
[2024-08-31] MEDS: BUPIVACAINE (PF) 0.5% 30 ML VIAL SQ ONE (07:56)
[2024-08-31 08:50] VITALS: RESP 16; TEMP 98
[2024-08-31 08:53] LABS: Glucose,Whole Blood 161 mg/dL (70-110)
--- NOTE | 2024-08-31 09:26 | FL ---
EXAMINATION TYPE: FL guidance operating room, XR lumbar spine 2 or 3V DATE OF EXAM: 08/31/2024 8:58 AM COMPARISON: Pre Operative Images if available both CT/MRI or plain film CLINICAL INDICATION: Male, 59 years old with history of L4-S1 MEDIAL BRANCH TRANSECTION; TECHNIQUE: FL guidance operating room, XR lumbar spine 2 or 3V, multiple fluoroscopic images provided for procedure. DAP: 5.7728 mGym2 Gycm2 uGym2 cGycm2 or equivalent. FINDINGS: Fluoroscopic images during injection for pain management demonstrate multilevel degeneration changes throughout the spine. No evidence for fracture. No acute process identified. IMPRESSION: 1. No evidence for intraoperative complication. 2. Please see the operative/procedural note for further details. [facility], , 08/31/2024 9:23 AM
[2024-08-31 10:38] VITALS: BP 122/83; PULSE 85
--- NOTE | 2024-09-06 08:11 | P.OP ---
Date of Procedure: 08/31/24 Preoperative Diagnosis: 1. SEVERE FACET ARTHROSIS L4-S1 LEFT 2. LOW BACK PAIN, MECHANICAL 3. SPONDYLOSIS L4-S1 Postoperative Diagnosis: 1. SEVERE FACET ARTHROSIS L4-S1 LEFT 2. LOW BACK PAIN, MECHANICAL 3. SPONDYLOSIS L4-S1 Procedure(s) Performed: 1. L4-5 MEDIAL BRANCH TRANSECTION UNDER DIRECT VISUALIZATION 2. L5-S1 MEDIAL BRANCH TRANSECTION UNDER DIRECT VISUALIZATION NOTE: ENDO Implants: NONE Anesthesia: GETA Surgeon: Hussein Casanova Acetylene Torch Solderer #1: Heather De León (Was present and assisted with all aspects of the case from position to dressing placement) Estimated Blood Loss (ml): 2 IV fluids (ml): 500 Urine output (ml): 0 Pathology: none sent Condition: stable Disposition: PACU Indications for Procedure: Mr. Newell is a 58-year-old male who presents for follow-up evaluation of chronic low back pain. Patient previously underwent L4-S1 left facet block injections under fluoroscopic guidance on 05/07/24, reporting 80-100% improvement in symptoms lasting approximately one month. Current symptoms include left-sided lumbar pain exacerbated by bending, walking, sitting, and standing, with associated mild sleep disturbances. Imaging studies demonstrate moderate to severe facet arthrosis at L4-5 and L5-S1 bilaterally with facet hypertrophy, osteophytosis, and air in facet joints. Current management includes Tramadol, Gabapentin, and Naproxen. After thorough discussion of treatment options, risks, and benefits, patient has elected to proceed with L4-S1 left medial branch transection under direct visualization. Patient to obtain medical clearance from PCP prior to surgical intervention. Patient ambulates independently and denies any constitutional symptoms, perineal numbness/tingling, or bowel/bladder dysfunction Description of Procedure: L4-S1 MEDIAL BRANCH TRANSECTION UNDER DIRECT VISUALIZATION (LEFT) The patient was seen and examined in the preoperative area. All preoperative protocols were followed. Informed consent was obtained, risks and benefits of the procedure were discussed at length. Risks including bleeding infection damage to the surrounding tissue and risk of reoperation were discussed with the patient. Risk of anesthesia up to and including was discussed with the patient. These are outlined in the risk review. They were willing to accept these risks and all of the risks of surgery. The patient was given a weight- based dose of antibiotics in the form of 2 g Ancef. The patient was seen and evaluated by the anesthesia team who deemed them fit for surgery. The site was marked, the patient was willing to proceed with the procedure. The patient was transferred to the operative suite by the Department of anesthesia. They were then drifted off to sleep by the department anesthesia and GETA was performed. The patient tolerated this well. Once confirmation of lines and ventilation the patient was transferred to a [prone Ghulam table very carefully]. All bony prominences including wrists, elbows, axilla, chest, hips, and thighs, and feet were padded very well. Special attention was paid to the genitalia and these were padded accordingly. SCDs were placed on bilateral lower extremities and were connected. Arms were well padded and placed [on arm boards up and out in the 90/90 position]. Once in position, again we confirmed good ventilation capabilities and that lines were running appropriately. The patient's lumbar spine was then exposed. 1010s were placed outlining the incision site. Standard alcohol was used to clean the incision site and allowed to dry. C-arm was used to biomark the patient and confirm level for incision which was marked with a skin marker. Operative briefing was performed with all teams and everyone in agreement to proceed. The patient was then prepped and draped in a normal sterile fashion. Timeout was then performed and all parties were in agreement with the procedure to be performed. 18-gauge needle and was then used to localize the left side L4-5 AND L5-S1 facet joint. Lidocaine 2% with epi and Marcaine .25% w/o placed in this area. Skin jero was then made and a trocar for the scope was entered. X-ray used to localize this area. Once this was confirmed an accessory portal was made and a trocar placed through here. We then used the ArthroCare wand to skeletonize the transverse process on the left-hand side at L5-S1 as well as sacral ala. This was then followed out medially until the L5-S1 facet joint medially and mamillary process was identified as well as the ligament in this area. Nerve was identified at L5-S1 level and visualized directly when it was transected. ArthroCare wand was then used to burn the area to retract the nerve ends. The scope was lavaged with pictures taken in this area and inspected there was no damage or issues and no bleeding. We then proceeded to L4-5. At L4-5, We then used the ArthroCare wand to skeletonize the transverse process on the left-hand side at L4-5 as well as caudal joint capsule. This was then followed out medially until the L4-5 facet joint medially and mamillary process was identified as well as the ligament in this area. Nerve was identified at L4-5 level and visualized directly when it was transected. ArthroCare wand was then used to burn the area to retract the nerve ends. The scope was lavaged with pictures taken in this area and inspected there was no damage or issues and no bleeding. The scope was removed The wounds were then cleaned and simple stitches were placed in the skin and they were glued. These were then dressed sterilely with Band-Aids. The patient was transferred back to their hospital bed atraumatically. The patient was then awakened and extubated by the department of anesthesia having tolerated the procedure very well with no complications. They were transferred to the postoperative care unit in stable condition.
== END 2024-08-31 10:50 | disposition home or self-care (01) ==
LOC: OR 05:45
PROVIDERS: ATTEND Orthopaedic Surgery
DX: M47.816 Spondylosis without myelopathy or radiculopathy, lumbar region (principal); M51.369 Other intervertebral disc degeneration, lumbar region without mention of lumbar back pain or lower extremity pain; M47.817 Spondylosis without myelopathy or radiculopathy, lumbosacral region; I10 Essential (primary) hypertension; E11.9 Type 2 diabetes mellitus without complications; E78.5 Hyperlipidemia, unspecified; G47.30 Sleep apnea, unspecified; G89.29 Other chronic pain; F32.A Depression, unspecified; E66.01 Morbid (severe) obesity due to excess calories; Z79.4 Long term (current) use of insulin; Z79.84 Long term (current) use of oral hypoglycemic drugs; Z79.1 Long term (current) use of non-steroidal anti-inflammatories (NSAID); Z79.899 Other long term (current) drug therapy; Z85.46 Personal history of malignant neoplasm of prostate; Z88.8 Allergy status to other drugs, medicaments and biological substances
CPT/HCPCS: 64772; 86900; 86901; 86850; 72100; J2250; J0330; J2710; J0690; J2405; J2003; J3010; J1885; J2704; J0665; J1596

== ENCOUNTER → 2024-09-27 | Outpatient (CLI) | payer OTHER ==
--- NOTE | 2024-09-27 11:17 | US ---
EXAMINATION TYPE: US arterial LE single level DATE OF EXAM: 09/27/2024 10:16 AM COMPARISONS: None. CLINICAL INDICATION: Male, 59 years old with history of R09.89 DECREASED PEDAL PULSES; TECHNIQUE: Systolic pressures were taken of the upper and lower extremity arteries with ankle-brachia l indices and calculated bilaterally. History of: Smoker: No Hypertension: Yes Diabetic: Yes Hyperlipidemia: Yes TIA/CVA: No Previous Vascular Surgery: No [place]: No Vascular Ulcers: No Claudication: No Gangrene: No FINDINGS: Doppler Waveforms: Right: Biphasic Left: Biphasic Brachial Artery systolic pressure: Right: 182 Left: 184 Posterior Tibial artery systolic pressure: Right: 194 Left: CNO Dorsalis Pedis artery systolic pressure: Right: 204 Left: CNO Ankle-Brachial Indices: Right: 1.11 Left: 1.14 IMPRESSION: SEBAS: Right: Normal 0.9 - 1.4, Recommendation: None Left: Normal 0.9 - 1.4, Recommendation: None [facility], , 09/27/2024 11:15 AM
== END | disposition home or self-care (01) ==
LOC: RADUSWWP 09:44
PROVIDERS: ATTEND Family Medicine
DX: R09.89 Other specified symptoms and signs involving the circulatory and respiratory systems (principal)
CPT/HCPCS: 93923